=== PATIENT | female | born 1955 | race Caucasian/White ===

== ENCOUNTER 2017-02-11 12:27 | Inpatient (IN) | payer BC ==
[~2017-02-11] VITALS: Ht 172.7 cm; Wt 65.8 kg
[2017-02-11] MEDS ORDERED: SODIUM CHLORIDE 0.9% 1000ML 1,000 ML IV STA ×2 (12:47)
[2017-02-11] MEDS ORDERED: ONDANSETRON INJ 2 MG/ML 2 ML VIAL IV STA (12:47)
--- NOTE | 2017-02-11 12:50 | EMERGENCY ROOM VISIT NOTE ---
History Report prepared by Nahum: Jaime Crouch Under the Supervision of: Swanpa LittlejohnO. First contact with patient: 12:40 Chief Complaint: ABDOMINAL PAIN Stated Complaint: SHARP STOMACH PAIN History of Present Illness The patient is a 61 year old female who presents to the Emergency Room with complaints of sudden abdominal pain that started this morning. She describes the pain as severe, and mostly in the middle of her abdomen. The pain waxes and wanes. She states that she had episodes of vomiting following the onset of pain. She notes that years ago, she had gallbladder symptoms, so she had a cholecystectomy, but the symptoms kept coming. She then had an endoscopy and colonoscopy, and it was revealed that the patient had Crohn's. The patient also had appendicitis, and 2 years ago, a small Meckel diverticulum was found. Today is the first time that she has had similar symptoms to her gallbladder symptoms since then. She denies any chest pain, shortness of breath, fevers, chills, urinary symptoms, rectal bleeding, or leg swelling or leg pain. The patient had a hysterectomy due to abnormal cells. There was no definite cancer. She occasionally drinks alcohol but does not use tobacco products. She takes no daily medications. Source of History: patient Onset: This morning Position: abdomen Symptom Intensity: severe Timing: waxes/wanes, other (sudden) Associated Symptoms: + vomiting, No SOB, No chest pain, No chills, No fevers , No urinary symptoms Note: Associated symptoms: Denies rectal bleeding, leg swelling or leg pain. Review of Systems See HPI for pertinent positives & negatives. A total of 10 systems reviewed and were otherwise negative. Past Medical & Surgical Medical Problems: (1) Crohns disease (2) Meckel diverticulum (3) No chronic problems Surgical Problems: (1) H/O: hysterectomy (2) History of appendectomy (3) History of appendectomy (4) History of cholecystectomy (5) Hx of cholecystectomy (6) Hx of total knee arthroplasty Family History Cancer Diabetes mellitus FH: kidney disease Gallbladder disease Social History Smoking Status: Never Smoker Smokeless Tobacco Use: No Alcohol Use: occasionally Marital Status: Housing Status: lives with family Occupation Status: employed Current/Historical Medications Scheduled Cetirizine Hcl (Zyrtec Allergy), 10 MG PO DAILY Cholecalciferol (Vitamin D3), 1 TAB PO DAILY Fish Oil ([place]-3), 1 CAP PO DAILY Ibuprofen (Advil), 200-600 MG PO Q4H Multivitamin (Multivitamin), 1 TAB PO DAILY Allergies Coded Allergies: No Known Allergies (Unverified , 02/11/17) Physical Exam Vital Signs Date Time Temp Pulse Resp B/P Pulse Ox O2 Delivery O2 Flow Rate FiO2 02/11/17 17:09 90 02/11/17 15:50 77 15 117/78 97 Room Air 02/11/17 14:13 84 16 135/85 98 02/11/17 13:05 75 02/11/17 12:31 36.4 75 18 131/92 100 Room Air Physical Exam GENERAL: Patient is awake, alert, very anxious and uncomfortable appearing. EYES: The conjunctivae are clear. The pupils are round and reactive. EARS, NOSE, MOUTH AND THROAT: The nose is without any evidence of any deformity. Mucous membranes are moist tongue is midline NECK: The neck is nontender and supple. RESPIRATORY: Normal respiratory effort is noted there is no evidence of wheezing rhonchi or rales CARDIOVASCULAR: Regular rate and rhythm noted there no murmurs rubs or gallops normal S1 normal S2 GASTROINTESTINAL: The abdomen is soft with significant tenderness and guarding in both lower quadrants. BACK: No midline tenderness or or step-off noted range of motion in flexion extension as well as rotation no signs of muscle spasm noted MUSCULOSKELETAL/EXTREMITIES: There is no evidence of gross deformity full range of motion is noted in the hips and shoulders SKIN: There is no obvious evidence of any rash. There are no petechiae, pallor or cyanosis noted. NEUROLOGIC: Patient is awake alert and oriented x3. Medical Decision & Procedures ER Provider Diagnostic Interpretation: CT results as stated below per my review and radiologist interpretation. CT OF THE ABDOMEN AND PELVIS WITH CONTRAST CLINICAL HISTORY: Lower abdominal pain. COMPARISON STUDY: None. TECHNIQUE: Following IV administration of 92 mL of Optiray-320, axial images of the abdomen and pelvis were obtained from the lung bases to the proximal femurs. Images were reviewed in the axial, sagittal, and coronal planes. IV contrast was administered without complication. Oral contrast was administered. CT DOSE: 490.70 mGycm FINDINGS: The liver, spleen, adrenal glands and pancreas are unremarkable with the exception of calcified granulomas within the spleen. Bilateral renal lesions measure just above water attenuation. These likely reflect cysts. There is no hydronephrosis. There is no significant biliary ductal dilatation status post cholecystectomy. There is no pneumatosis, free air or portal venous gas. A small bowel anastomosis likely within the ileum is noted. There is a small amount of abdominal and pelvic ascites. There is mesenteric infiltration and hyperemia associated with multiple small bowel loops within the pelvis. Several minimally dilated fluid-filled small bowel loops are noted. A definite transition point is not identified. There is no lymphadenopathy. The uterus is surgically absent. IMPRESSION: Several minimally dilated, fluid-filled small bowel loops with associated mesenteric infiltration and a small amount of ascites. Definite transition point not identified. Differential considerations include a small bowel obstruction or enteritis. A closed loop small bowel obstruction would be difficult to exclude but the findings are not strongly suggestive of a closed loop. Close clinical monitoring is recommended. Discussed with Dr. Lundberg at time of dictation. Electronically signed by: Thierno Mccollum M.D. 02/11/2017 4:14 PM Dictated Date/Time: 02/11/2017 3:43 PM Laboratory Results Test 02/11/17 12:45 02/11/17 15:08 Immature Granulocyte % (Auto) 0.2 % White Blood Count 12.22 K/uL (4.8-10.8) Red Blood Count 5.20 M/uL (4.2-5.4) Hemoglobin 15.7 g/dL (12.0-16.0) Hematocrit 46.9 % (37-47) Mean Corpuscular Volume 90.2 fL (80-100) Mean Corpuscular Hemoglobin 30.2 pg (25-34) Mean Corpuscular Hemoglobin Concent 33.5 g/dl (32-36) Platelet Count 218 K/uL (130-400) Mean Platelet Volume 9.8 fL (7.4-10.4) Neutrophils (%) (Auto) 89.3 % Lymphocytes (%) (Auto) 6.5 % Monocytes (%) (Auto) 3.7 % Eosinophils (%) (Auto) 0.2 % Basophils (%) (Auto) 0.1 % Neutrophils # (Auto) 10.92 K/uL (1.4-6.5) Lymphocytes # (Auto) 0.79 K/uL (1.2-3.4) Monocytes # (Auto) 0.45 K/uL (0.11-0.59) Eosinophils # (Auto) 0.03 K/uL (0-0.5) Basophils # (Auto) 0.01 K/uL (0-0.2) Immature Granulocyte # (Auto) 0.02 K/uL (0.00-0.02) Total Bilirubin 0.7 mg/dl (0.2-1) Direct Bilirubin 0.1 mg/dl (0-0.2) Aspartate Amino Transf (AST/SGOT) 23 U/L (15-37) Alanine Aminotransferase (ALT/SGPT) 27 U/L (12-78) Alkaline Phosphatase 88 U/L (45-117) Total Protein 8.0 gm/dl (6.4-8.2) Albumin 4.3 gm/dl (3.4-5.0) Lipase 148 U/L (73-393) Urine Color YELLOW Urine Appearance TURBID (CLEAR) Urine pH >= 9.0 (4.5-7.5) Urine Specific [place] 1.013 (1.000-1.030) Urine Protein NEG (NEG) Urine Glucose (UA) NEG (NEG) Urine Ketones TRACE (NEG) Urine Occult Blood NEG (NEG) Urine Nitrite NEG (NEG) Urine Bilirubin NEG (NEG) Urine Urobilinogen NEG (NEG) Urine Leukocyte Esterase NEG (NEG) Urine WBC (Auto) 1-5 /hpf (0-5) Urine RBC (Auto) 0-4 /hpf (0-4) Urine Hyaline Casts (Auto) 1-5 /lpf (0-5) Urine Epithelial Cells (Auto) 20-30 /lpf (0-5) Urine Bacteria (Auto) NEG (NEG) Laboratory results per my review. Medications Administered Medications (Trade) Dose Ordered Sig/Mary Route Start Time Stop Time Status Last Admin Dose Admin Sodium Chloride 1,000 ml @ 999 mls/hr Q1H1M STAT IV 02/11/17 12:47 02/11/17 13:47 DC 02/11/17 12:59 999 MLS/HR Sodium Chloride (Nss 1000ml) 1,000 ml @ 250 mls/hr Q4H STAT IV 02/11/17 12:47 02/11/17 16:46 DC 02/11/17 12:47 250 MLS/HR Morphine Sulfate (MoRPHine SULFATE INJ) 4 mg Q15M PRN IV 02/11/17 13:00 4/26/17 18:10 DC 02/11/17 13:16 4 MG Ondansetron HCl (Zofran Inj) 4 mg NOW STAT IV 02/11/17 12:47 02/11/17 12:48 DC 02/11/17 12:58 4 MG Hydromorphone HCl (Dilaudid Inj) 1 mg NOW STAT IV 02/11/17 13:51 02/11/17 13:52 DC 02/11/17 14:14 1 MG ED Course 1240: The patient was evaluated in room A11B. A complete history and physical examination were performed. 1247: Ordered Zofran Inj 4 mg IV, NSS 1000 ml @ 250 mls/hr IV, NSS 1000 ml @ 999 mls/hr IV. 1300: Ordered Morphine Sulfate Inj 4 mg IV PRN. 1351: Ordered Dilaudid Inj 1 mg IV. 1431: I reevaluated the patient and she is resting comfortably. 1622: I reevaluated the patient and she is resting comfortably. The patient verbally expressed understanding and agreement with the treatment plan. The patient will be evaluated for further treatment. 1650: I discussed the patient with Melissa Black. She will evaluate the patient for further treatment. Medical Decision Prior records/ancillary studies reviewed. Triage Nursing notes reviewed. The patient's history was concerning for abdominal pain. Differential diagnosis: Etiologies such as appendicitis, diverticulitis, PUD, biliary pathology, UTI, pancreatitis, obstruction, mesenteric ischemia, aortic pathology, infections, inflammatory bowel disease, renal colic, as well as others were entertained. The patient is a 61-year-old female who presented to the emergency department for an evaluation of lower abdominal pain nausea and vomiting. The patient states that she's had similar symptoms in the past. She had this pain for quite some time and 2 years ago was diagnosed with appendicitis but was also found have a Meckel's diverticulum. This seemed to [place] her symptoms and she states that she's not had this pain for 2 years until recently. The patient's exam appeared to be consistent with very severe pain in the lower abdomen. Her CT appear to be consistent with either small bowel obstruction or some type of colitis but the radiologist was very concerned about the findings and called me to discuss her presentation. For this reason I discussed her case with the on- call [facility] hospitalist group. They've agreed to evaluate the patient in the emergency department for further management and disposition. I discussed the patient's laboratory and radiographic studies with her. She was treated with IV fluids IV pain medicine and IV antiemetics. On subsequent reevaluation she was feeling much better. Consults Time Called: 1640 Consulting Physician: Melissa Black Returned Call: 1650 I discussed the patient with Melissa Black. She will evaluate the patient for further treatment. Impression Primary Impression: Small bowel obstruction Additional Impressions: Nausea & vomiting Lower abdominal pain Scribe Attestation The scribe's documentation has been prepared under my direction and personally reviewed by me in its entirety. I confirm that the note above accurately reflects all work, treatment, procedures, and medical decision making performed by me. Departure Information Dispostion Being Evaluated By Hospitalist Referrals No Doctor, Assigned (PCP) Patient Instructions My [facility] Problem Qualifiers Additional Impressions: Nausea & vomiting Vomiting type: unspecified Vomiting Intractability: non-intractable Qualified Codes: R11.2 - Nausea with vomiting, unspecified
[2017-02-11] MEDS: MoRPHine SULFATE 4 MG/ML 1 ML CARP\\VIAL IV PRN ×2 (12:58→13:16)
[2017-02-11 12:59] LABS: BASO % 0.1 %; BASO ABS # 0.01 K/uL (0-0.2); COMPLETE YES; EOS % 0.2 %; HEMATOCRIT 46.9 % (37-47); IG% 0.2 %; LYMPH % 6.5 %; LYMPH ABS # 0.79 K/uL (1.2-3.4); MEAN CELL VOLUME 90.2 fL (80-100); MEAN CORPUSCULAR HEMOGLOBIN 30.2 pg (25-34); MEAN CORPUSCULAR HGB CONC 33.5 g/dl (32-36); MEAN PLATELET VOLUME 9.8 fL (7.4-10.4); MONO % 3.7 %; NEUT % 89.3 %; PLATELET COUNT 218 K/uL (130-400); WHITE BLOOD COUNT 12.22 K/uL (4.8-10.8)
[2017-02-11 13:16] LABS: BUN/CREATININE RATIO 10.1 (10-20); CALCIUM 9.5 mg/dl (8.5-10.1); POTASSIUM 3.5 mmol/L (3.5-5.1)
[2017-02-11] MEDS ORDERED: HYDROmorphone INJ 1 MG/ML SYR IV STA (13:51)
[2017-02-11] MEDS ORDERED: IBUP-1050 PO (13:56)
[2017-02-11] MEDS ORDERED: MULT-506 PO (13:56)
[2017-02-11] MEDS ORDERED: OMEG10007 PO (13:56)
[2017-02-11] MEDS ORDERED: CHOL1000 PO (13:56)
[2017-02-11] MEDS ORDERED: CETI10CA PO (13:56)
[2017-02-11] MEDS ORDERED: OPTIRAY 320 IV PRN (15:15)
[2017-02-11 15:24] LABS: URINE APPEARANCE TURBID (CLEAR); URINE BILIRUBIN NEG (NEG); URINE COLOR YELLOW; URINE EPITHELIAL CELL AUTO 20-30 /lpf (0-5); URINE NITRITE NEG (NEG); URINE PH >= 9.0 (4.5-7.5); URINE SPECIFIC GRAVITY 1.013 (1.000-1.030); UROBILINOGEN NEG (NEG)
[2017-02-11 15:25] LABS: MANUAL MICROSCOPIC REQUIRED? NO; REVIEW REQ? NO
--- NOTE | 2017-02-11 16:16 | DIAGNOSTIC IMAGING REPORT ---
CT OF THE ABDOMEN AND PELVIS WITH CONTRAST CLINICAL HISTORY: Lower abdominal pain. COMPARISON STUDY: None. TECHNIQUE: Following IV administration of 92 mL of Optiray-320, axial images of the abdomen and pelvis were obtained from the lung bases to the proximal femurs. Images were reviewed in the axial, sagittal, and coronal planes. IV contrast was administered without complication. Oral contrast was administered. CT DOSE: 490.70 mGycm FINDINGS: The liver, spleen, adrenal glands and pancreas are unremarkable with the exception of calcified granulomas within the spleen. Bilateral renal lesions measure just above water attenuation. These likely reflect cysts. There is no hydronephrosis. There is no significant biliary ductal dilatation status post cholecystectomy. There is no pneumatosis, free air or portal venous gas. A small bowel anastomosis likely within the ileum is noted. There is a small amount of abdominal and pelvic ascites. There is mesenteric infiltration and hyperemia associated with multiple small bowel loops within the pelvis. Several minimally dilated fluid-filled small bowel loops are noted. A definite transition point is not identified. There is no lymphadenopathy. The uterus is surgically absent. IMPRESSION: Several minimally dilated, fluid-filled small bowel loops with associated mesenteric infiltration and a small amount of ascites. Definite transition point not identified. Differential considerations include a small bowel obstruction or enteritis. A closed loop small bowel obstruction would be difficult to exclude but the findings are not strongly suggestive of a closed loop. Close clinical monitoring is recommended. Discussed with Dr. Lundberg at time of dictation. Electronically signed by: Thierno Mccollum M.D. 02/11/2017 4:14 PM Dictated Date/Time: 02/11/2017 3:43 PM
[2017-02-11] MEDS ORDERED: MoRPHine SULFATE 2 MG/ML CARP IV PRN (17:30)
[2017-02-11] MEDS ORDERED: ACETAMINOPHEN 325 MG TAB PO PRN (17:30)
--- NOTE | 2017-02-11 17:41 | History and Physical ---
History & Physical Date & Time of Service: Feb 11, 2017 at 17:23 Chief Complaint: Sharp Stomach Pain Primary Care Physician: No Doctor, Assigned History of Present Illness Source: patient, family Patient seen and examined. 61 year old female with no chronic medical history presents to the ED complaining of abdominal pain prior to arrival. Patient reports she acutely developed lower abdominal pain this AM that she described as sharp and comes in waves. She rates the pain as a 9/10 at it's worst. She reports 4 episodes of vomiting and states she had a small bowel movement. She denies fevers, chills, URI symptoms, chest pain, SOB, nausea, dysuria, calf pain and edema. She reports that she has been told she has a meckle's diverticulum. She has a history of cholecystectomy, appendectomy and hysterectomy. In the ED VS are stable, WBC count is 12K otherwise lab work is unremarkable. CT a/p could not r/o bowel obstruction. Patient received IVFs, antiemetics and pain medications. She is resting comfortably. She will be observed for further workup and treatment. Past Medical/Surgical History Medical Problems: (1) Meckel diverticulum Status: Resolved (2) No chronic problems Status: Chronic Surgical Problems: (1) H/O: hysterectomy Status: Chronic (2) History of appendectomy Status: Chronic (3) History of cholecystectomy Status: Chronic (4) Hx of total knee arthroplasty Status: Chronic Family History Cancer Diabetes mellitus FH: kidney disease Gallbladder disease Social History Smoking Status: Never Smoker Smokeless Tobacco Use: No Alcohol Use: occasionally Marital Status: Housing status: lives with family Occupational Status: employed Allergies Coded Allergies: No Known Allergies (Unverified , 02/11/17) Home Medications Scheduled Cetirizine Hcl (Zyrtec Allergy), 10 MG PO DAILY Cholecalciferol (Vitamin D3), 1 TAB PO DAILY Fish Oil ([place]-3), 1 CAP PO DAILY Ibuprofen (Advil), 200-600 MG PO Q4H Multivitamin (Multivitamin), 1 TAB PO DAILY Review of Systems Constitutional: No chills, No fever Eyes: No worsening of vision ENT: No nasal symptoms Respiratory: No cough, No shortness of breath Cardiovascular: No chest pain, No edema Abdomen: + pain, + vomiting, No GI bleeding, No constipation, No diarrhea, No nausea Musculoskeletal: No calf pain, No swelling Genitourinary - Female: No dysuria Neurologic: No numbness/tingling, No vertigo Psychiatric: No depression symptoms Endocrine: No fatigue Hematologic / Lymphatic: No abnormal bleeding/bruising, No clotting problems Integumentary: No itch, No rash Allergic / Immunologic: No environmental allergies Physical Exam Vital Signs Date Time Temp Pulse Resp B/P Pulse Ox O2 Delivery O2 Flow Rate FiO2 02/11/17 17:09 90 02/11/17 15:50 77 15 117/78 97 Room Air 02/11/17 14:13 84 16 135/85 98 02/11/17 13:05 75 02/11/17 12:31 36.4 75 18 131/92 100 Room Air General Appearance: + pertinent finding (Pleasant WD/WN 61 year old female lying in bed in NAD with family at bedside ) Head: normocephalic, atraumatic Eyes: PERRL, EOMI, sclerae normal ENT: hearing grossly normal, pharynx normal Neck: supple, no JVD Respiratory/Chest: chest non-tender, lungs clear, normal breath sounds, no respiratory distress, no accessory muscle use Cardiovascular: regular rate, rhythm, no edema, no gallop, no JVD, no murmur, normal peripheral pulses Abdomen/GI: normal bowel sounds, soft, no organomegaly, + tenderness (mild lower abdomen ) Back: normal inspection, no muscle spasm Extremities/Musculoskelatal: no calf tenderness, normal capillary refill, no pedal edema Neurologic/Psych: no motor/sensory deficits, alert, oriented x 3 Skin: normal color, warm/dry, no rash Lymphatic: no adenopathy Diagnostics Laboratory Results Results Past 24 Hours Test 02/11/17 12:45 02/11/17 15:08 Range/Units White Blood Count 12.22 4.8-10.8 K/uL Red Blood Count 5.20 4.2-5.4 M/uL Hemoglobin 15.7 12.0-16.0 g/dL Hematocrit 46.9 37-47 % Mean Corpuscular Volume 90.2 80-100 fL Mean Corpuscular Hemoglobin 30.2 25-34 pg Mean Corpuscular Hemoglobin Concent 33.5 32-36 g/dl Platelet Count 218 130-400 K/uL Mean Platelet Volume 9.8 7.4-10.4 fL Neutrophils (%) (Auto) 89.3 % Lymphocytes (%) (Auto) 6.5 % Monocytes (%) (Auto) 3.7 % Eosinophils (%) (Auto) 0.2 % Basophils (%) (Auto) 0.1 % Neutrophils # (Auto) 10.92 1.4-6.5 K/uL Lymphocytes # (Auto) 0.79 1.2-3.4 K/uL Monocytes # (Auto) 0.45 0.11-0.59 K/uL Eosinophils # (Auto) 0.03 0-0.5 K/uL Basophils # (Auto) 0.01 0-0.2 K/uL RDW Standard Deviation 43.7 36.4-46.3 fL RDW Coefficient of Variation 13.4 11.5-14.5 % Immature Granulocyte % (Auto) 0.2 % Immature Granulocyte # (Auto) 0.02 0.00-0.02 K/uL Sodium Level 140 136-145 mmol/L Potassium Level 3.5 3.5-5.1 mmol/L Chloride Level 105 98-107 mmol/L Carbon Dioxide Level 30 21-32 mmol/L Anion Gap 5.0 3-11 mmol/L Blood Urea Nitrogen 10 7-18 mg/dl Creatinine 1.00 0.60-1.20 mg/dl Est Creatinine Clear Calc Drug Dose 61.1 ml/min Estimated GFR () 71.4 Estimated GFR (Non- 61.6 BUN/Creatinine Ratio 10.1 10-20 Random Glucose 126 70-99 mg/dl Calcium Level 9.5 8.5-10.1 mg/dl Total Bilirubin 0.7 0.2-1 mg/dl Direct Bilirubin 0.1 0-0.2 mg/dl Aspartate Amino Transf (AST/SGOT) 23 15-37 U/L Alanine Aminotransferase (ALT/SGPT) 27 12-78 U/L Alkaline Phosphatase 88 45-117 U/L Total Protein 8.0 6.4-8.2 gm/dl Albumin 4.3 3.4-5.0 gm/dl Lipase 148 73-393 U/L Urine Color YELLOW Urine Appearance TURBID CLEAR Urine pH >= 9.0 4.5-7.5 Urine Specific [place] 1.013 1.000-1.030 Urine Protein NEG NEG Urine Glucose (UA) NEG NEG Urine Ketones TRACE NEG Urine Occult Blood NEG NEG Urine Nitrite NEG NEG Urine Bilirubin NEG NEG Urine Urobilinogen NEG NEG Urine Leukocyte Esterase NEG NEG Urine WBC (Auto) 1-5 0-5 /hpf Urine RBC (Auto) 0-4 0-4 /hpf Urine Hyaline Casts (Auto) 1-5 0-5 /lpf Urine Epithelial Cells (Auto) 20-30 0-5 /lpf Urine Bacteria (Auto) NEG NEG Diagnostic Radiology CT A/P Per radiologist read: IMPRESSION: Several minimally dilated, fluid-filled small bowel loops with associated mesenteric infiltration and a small amount of ascites. Definite transition point not identified. Differential considerations include a small bowel obstruction or enteritis. A closed loop small bowel obstruction would be difficult to exclude but the findings are not strongly suggestive of a closed loop. Close clinical monitoring is recommended. Discussed with Dr. Lundberg at time of dictation. Impression Assessment and Plan 61 year old female with PMHx of appendectomy, cholecystectomy, and hysterectomy , with known meckle's diverticulum presents to the ED with abdominal pain ABDOMINAL PAIN -Observation in med/surg -CT scan without definitive bowel obstruction (see above) -Did have small bowel movement this AM, good bowel sounds -will keep npo -no indication for NG tube at this time, will consider if patient has vomiting -Pain control with morphine prn - prescription drug monitoring program reviewed -Zofran prn -IVF hydration -CBC, PRP, in AM -monitor clinically, if patient does not improve consider KUB in AM, defer to daytime attending LEUKOCYTOSIS -12K, no fevers -Likely reactive, repeat in AM -no indication for Abx DVT PROPHYLAXIS: SCDs, ambulation CODE STATUS: FULL CODE DISPO:observation pending further workup Patient seen in collaboration with Dr. Jillian Guzman VTE Prophylaxis VTE Risk Assessment Done? Y/N: Yes Risk Level: Low
[2017-02-11] MEDS ORDERED: IV FLUIDS COMPLETED PRN (18:00)
--- NOTE | 2017-02-11 18:09 | Progress Note ---
Progress Note Date of Service Feb 11, 2017. Progress Note Patient was seen and evaluated with HARRY Carlson. Patient came in with c/o sudden onset abdominal pain, nausea, v omiting since today AM. She was at her baseline till today AM. Abdominal pain, lower constant varying intensities, now much better in ED after medication. Never had these symptoms before. No fever, chills, diarrhea, weight loss, anorexia. Does have irregular Bowel movements. Had a BM, small today AM EXAM: Gen: AAOX3, no distress Lungs: Clear, No wheezing, rhonchi, rales Heart- S1, S2 normal, no murmur Abdomen- Soft, mild tenderness, right lower and middle quadrant more than upper , BS +, no rigidity Ext- no edema Labs: WBC 12k; CT scan abd/pelvis reviewed- possible SBO A/P: POSSIBLE SBO: Sudden onset abdominal pain, nausea, vomiting since today AM, had a small BM today Risk factors: Multiple abdominal surgeries- Hysterectomy, Appendectomy, Cholecystectomy,. Possible adhesions -NPO with sips, chips, IV Fluids, Colace BID added due to irregular bm habits -IV toradol prn, avoid narcotics as pain is well controlled and avoid ileus -Advance diet as tolerated -CT scan as above. DVT PROPHYLAXIS SCDS, low risk, encourage ambulation DISPOSITION Observation med surg
[2017-02-11 19:30] VITALS: BP 114/74; PULSE 78; TEMP 36.8; O2SAT 100
[2017-02-11 19:36] VITALS: BP 114/74; PULSE 78; TEMP 36.8; O2SAT 100; Ht 172.7 cm; Wt 65.8 kg
[2017-02-11] MEDS: NSS + 20MEQ KCL 1000ML 1,000 ML IV SCH (20:16)
[2017-02-11] MEDS: DOCUSATE SODIUM 100 MG CAP PO SCH (21:04)
[2017-02-11] MEDS: KETOROLAC TROMETHAMINE 30 MG/ML VIAL IV PRN (21:09)
[2017-02-11 23:02] VITALS: BP 109/66; PULSE 71; TEMP 36.8; O2SAT 94
[2017-02-12] MEDS ORDERED: MoRPHine SULFATE 2 MG/ML CARP IV ONE (00:45)
[2017-02-12] MEDS: KETOROLAC TROMETHAMINE 30 MG/ML VIAL IV PRN ×3 (03:10→15:38)
[2017-02-12] MEDS: NSS + 20MEQ KCL 1000ML 1,000 ML IV SCH ×2 (05:43→15:39)
[2017-02-12 06:56] LABS: HEMATOCRIT 44.8 % (37-47); MEAN CELL VOLUME 90.3 fL (80-100); MEAN CORPUSCULAR HEMOGLOBIN 29.6 pg (25-34); MEAN CORPUSCULAR HGB CONC 32.8 g/dl (32-36); MEAN PLATELET VOLUME 9.7 fL (7.4-10.4); PLATELET COUNT 211 K/uL (130-400); RED BLOOD COUNT 4.96 M/uL (4.2-5.4); WHITE BLOOD COUNT 11.28 K/uL (4.8-10.8)
[2017-02-12 07:20] VITALS: BP 127/89; PULSE 73; TEMP 36.9; O2SAT 97
[2017-02-12 07:37] LABS: BUN/CREATININE RATIO 9.4 (10-20); CALCIUM 9.4 mg/dl (8.5-10.1); POTASSIUM 4.1 mmol/L (3.5-5.1)
[2017-02-12] MEDS: DOCUSATE SODIUM 100 MG CAP PO SCH ×2 (08:29→21:00)
[2017-02-12] MEDS ORDERED: NURSING VERBAL MED ORDER ONE (10:45)
[2017-02-12] MEDS: ACETAMINOPHEN IV 650 MG in EMPTY BAG 0 ML IV PRN ×3 (11:31→23:23)
[2017-02-12 15:08] VITALS: BP 133/88; PULSE 80; TEMP 36.9; O2SAT 97
--- NOTE | 2017-02-12 17:23 | Progress Note ---
Subjective Date of Service: Feb 12, 2017. Subjective Pt evaluation today including: conversation w/ patient, conversation w/ family , physical exam, chart review, lab review, review of studies, review of inpatient medication list Saw/examined the patient in room 379 She continued to have abdominal pain with tenderness and multiple vomiting episodes No bowel movement since February 10 Improving pain with medications Problem List Medical Problems: (1) Lower abdominal pain Status: Acute (2) Nausea & vomiting Status: Acute (3) Small bowel obstruction Status: Acute Review of Systems Constitutional: No chills, No fever Respiratory: No cough, No shortness of breath, No sputum Cardiac: No chest pain Abdomen: + constipation, + nausea, + pain, + vomiting, No diarrhea Medications Current Inpatient Medications Medications (Trade) Dose Ordered Sig/Mary Route Start Time Stop Time Status Last Admin Dose Admin Ioversol (Optiray 320) 100 ml UD PRN IV 02/11/17 15:15 02/15/17 15:14 Ondansetron HCl 4 mg 4 mg Q6H PRN IV 02/11/17 17:30 03/13/17 17:29 Potassium Chloride/Sodium Chloride (Nss + 20meq KCl 1000ml) 1,000 ml @ 100 mls/hr Q10H IV 02/11/17 20:00 03/13/17 17:29 02/12/17 15:39 100 MLS/HR Miscellaneous (Iv Fluids Completed) 1 ea PRN PRN N/A 02/11/17 18:00 02/11/18 17:59 Ketorolac Tromethamine (Toradol Inj) 30 mg Q6H PRN IV 02/11/17 18:15 02/16/17 18:14 02/12/17 15:38 30 MG Docusate Sodium 100 mg 100 mg BID PO 02/11/17 21:00 03/13/17 20:59 02/11/17 21:04 100 MG Acetaminophen/ Empty Bag (Ofirmev Iv/ Empty Iv Bag 100ml) 65 ml @ 260 mls/hr Q4H PRN IV 02/12/17 10:45 03/14/17 10:44 02/12/17 11:31 260 MLS/HR Objective Vital Signs Date Time Temp Pulse Resp B/P Pulse Ox O2 Delivery O2 Flow Rate FiO2 02/12/17 15:08 36.9 80 16 133/88 97 Room Air 02/12/17 07:30 Room Air 02/12/17 07:20 36.9 73 16 127/89 97 Room Air 02/12/17 00:05 Room Air 02/11/17 23:02 36.8 71 17 109/66 94 Room Air 02/11/17 19:36 36.8 78 18 114/74 100 Room Air 02/11/17 19:30 36.8 78 18 114/74 100 Room Air 02/11/17 19:30 100 Room Air 02/11/17 19:01 75 18 104/75 95 Room Air 02/11/17 17:44 80 21 108/77 96 02/11/17 17:09 90 Physical Exam General Appearance: + moderate distress (secondary to pain and nausea/vomiting) , + thin Respiratory/Chest: chest non-tender, lungs clear, normal breath sounds, no respiratory distress, no accessory muscle use Cardiovascular: regular rate, rhythm, no edema, no murmur Abdomen: + abnormal bowel sounds (decreased bowel sounds), + guarding, + tenderness Laboratory Results Last 24 Hours Test 02/12/17 06:31 White Blood Count 11.28 K/uL Red Blood Count 4.96 M/uL Hemoglobin 14.7 g/dL Hematocrit 44.8 % Mean Corpuscular Volume 90.3 fL Mean Corpuscular Hemoglobin 29.6 pg Mean Corpuscular Hemoglobin Concent 32.8 g/dl RDW Standard Deviation 44.8 fL RDW Coefficient of Variation 13.5 % Platelet Count 211 K/uL Mean Platelet Volume 9.7 fL Sodium Level 140 mmol/L Potassium Level 4.1 mmol/L Chloride Level 104 mmol/L Carbon Dioxide Level 32 mmol/L Anion Gap 4.0 mmol/L Blood Urea Nitrogen 9 mg/dl Creatinine 1.00 mg/dl Est Creatinine Clear Calc Drug Dose 61.1 ml/min Estimated GFR () 71.4 Estimated GFR (Non- 61.6 BUN/Creatinine Ratio 9.4 Random Glucose 109 mg/dl Calcium Level 9.4 mg/dl Assessment and Plan This is a 61 year old female with a complicated surgical history including cholecystectomy with complications including a biloma, appendectomy, hysterectomy, Meckel's diverticulum presents with nausea/vomiting and abdominal pain and subsequently found to have small bowel obstruction Small Bowel Obstruction Abdominal CT = possible small bowel obstruction NPO + IVFs (sips and chips) patient continued to have significant tenderness and vomiting episodes this AM ( 02/12) IV tylenol + IV toradol for pain Zofran PRN for nausea NGT inserted with intermittent suction - 400cc removed immediately; and continues to drain if pain persist, will consult general surgery DVT ppx SCDs FULL CODE
[2017-02-12 23:08] VITALS: BP 133/83; PULSE 88; TEMP 37.3; O2SAT 97
[2017-02-13] MEDS: NSS + 20MEQ KCL 1000ML 1,000 ML IV SCH ×3 (01:32→21:15)
[2017-02-13] MEDS: DOCUSATE SODIUM 100 MG CAP PO SCH ×2 (07:06→21:15)
[2017-02-13 07:35] VITALS: BP 125/79; PULSE 81; TEMP 36.8; O2SAT 96
[2017-02-13 07:38] LABS: MEAN CELL VOLUME 90.7 fL (80-100); MEAN PLATELET VOLUME 9.7 fL (7.4-10.4); PLATELET COUNT 203 K/uL (130-400); RED BLOOD COUNT 5.07 M/uL (4.2-5.4)
[2017-02-13 08:03] LABS: CREATININE 0.88 mg/dl (0.60-1.20); POTASSIUM 3.9 mmol/L (3.5-5.1)
--- NOTE | 2017-02-13 08:20 | DIAGNOSTIC IMAGING REPORT ---
[facility] CLINICAL HISTORY: Follow-up possible small bowel obstruction. FINDINGS: 2 AP supine abdominal radiographs are correlated with abdominal CT dated 02/11/2017. An enteric tube projects over the stomach. Cholecystectomy clips are noted in the right upper quadrant. There is gaseous distention of the small bowel loops which appear distended and measure up to 4.5 cm in diameter. The appearance suggests small bowel obstruction. No evidence of intraperitoneal free air is seen on these supine views. Suture material and surgical clips are noted in the pelvis. There are pelvic phleboliths. There is no radiographic evidence of nephrolithiasis. A metallic foreign body is again noted in the pelvis. The skeletal structures are osteopenic. There is lumbosacral spondylosis. The bony pelvis appears intact. IMPRESSION: 1. An enteric tube projects over the stomach. 2. There is gaseous distention of the small bowel loops. The appearance suggests small bowel obstruction. Clinical correlation will be required. Electronically signed by: Dae Guzmán M.D. 02/13/2017 8:19 AM Dictated Date/Time: 02/13/2017 8:17 AM
[2017-02-13] MEDS: KETOROLAC TROMETHAMINE 30 MG/ML VIAL IV PRN ×2 (11:14→17:39)
--- NOTE | 2017-02-13 12:30 | Progress Note ---
Subjective Date of Service: Feb 13, 2017. Subjective Pt evaluation today including: conversation w/ patient, physical exam, lab review, review of studies, review of inpatient medication list Saw/examined the patient in room 379 Improving abdominal pain, feels like she has to move her bowels, but has not yet no passing gas as of yet NGT in place and draining well Problem List Medical Problems: (1) Lower abdominal pain Status: Acute (2) Nausea & vomiting Status: Acute (3) Small bowel obstruction Status: Acute Review of Systems Constitutional: No chills, No fever Respiratory: No shortness of breath Cardiac: No chest pain Abdomen: + nausea, + pain (improving), + vomiting (improving) Medications Current Inpatient Medications Medications (Trade) Dose Ordered Sig/Mary Route Start Time Stop Time Status Last Admin Dose Admin Ioversol (Optiray 320) 100 ml UD PRN IV 02/11/17 15:15 02/15/17 15:14 Ondansetron HCl 4 mg 4 mg Q6H PRN IV 02/11/17 17:30 03/13/17 17:29 Potassium Chloride/Sodium Chloride (Nss + 20meq KCl 1000ml) 1,000 ml @ 100 mls/hr Q10H IV 02/11/17 20:00 03/13/17 17:29 02/13/17 11:14 100 MLS/HR Miscellaneous (Iv Fluids Completed) 1 ea PRN PRN N/A 02/11/17 18:00 02/11/18 17:59 Ketorolac Tromethamine (Toradol Inj) 30 mg Q6H PRN IV 02/11/17 18:15 02/16/17 18:14 02/13/17 11:14 30 MG Docusate Sodium 100 mg 100 mg BID PO 02/11/17 21:00 03/13/17 20:59 02/11/17 21:04 100 MG Acetaminophen/ Empty Bag (Ofirmev Iv/ Empty Iv Bag 100ml) 65 ml @ 260 mls/hr Q4H PRN IV 02/12/17 10:45 03/14/17 10:44 02/12/17 23:23 260 MLS/HR Objective Vital Signs Date Time Temp Pulse Resp B/P Pulse Ox O2 Delivery O2 Flow Rate FiO2 02/13/17 07:35 36.8 81 18 125/79 96 Room Air 02/13/17 07:31 Room Air 02/12/17 23:31 Room Air 02/12/17 23:08 37.3 88 16 133/83 97 Room Air 02/12/17 15:50 Room Air 02/12/17 15:08 36.9 80 16 133/88 97 Room Air Physical Exam General Appearance: no apparent distress, + thin Respiratory/Chest: lungs clear, normal breath sounds, no respiratory distress, no accessory muscle use Cardiovascular: regular rate, rhythm, no edema, no murmur Abdomen: non tender (minimally tender), soft, + abnormal bowel sounds ( decreased bowel sounds) Laboratory Results Last 24 Hours Test 02/13/17 06:58 White Blood Count 7.40 K/uL Red Blood Count 5.07 M/uL Hemoglobin 15.2 g/dL Hematocrit 46.0 % Mean Corpuscular Volume 90.7 fL Mean Corpuscular Hemoglobin 30.0 pg Mean Corpuscular Hemoglobin Concent 33.0 g/dl RDW Standard Deviation 44.6 fL RDW Coefficient of Variation 13.6 % Platelet Count 203 K/uL Mean Platelet Volume 9.7 fL Sodium Level 144 mmol/L Potassium Level 3.9 mmol/L Chloride Level 105 mmol/L Carbon Dioxide Level 29 mmol/L Anion Gap 10.0 mmol/L Blood Urea Nitrogen 19 mg/dl Creatinine 0.88 mg/dl Est Creatinine Clear Calc Drug Dose 69.4 ml/min Estimated GFR () 83.4 Estimated GFR (Non- 71.9 BUN/Creatinine Ratio 21.0 Random Glucose 103 mg/dl Calcium Level 9.0 mg/dl Assessment and Plan This is a 61 year old female with a complicated surgical history including cholecystectomy with complications including a biloma, appendectomy, hysterectomy, Meckel's diverticulum presents with nausea/vomiting and abdominal pain and subsequently found to have small bowel obstruction Small Bowel Obstruction 02/13 KUB this AM = SBO no passing gas, no BM yet continue NGT, IVFs, NPO status 02/[address] = possible small bowel obstruction NPO + IVFs (sips and chips) patient continued to have significant tenderness and vomiting episodes this AM ( 02/12) IV tylenol + IV toradol for pain Zofran PRN for nausea NGT inserted with intermittent suction - 400cc removed immediately; and continues to drain if pain persist, will consult general surgery DVT ppx SCDs FULL CODE
[2017-02-13] MEDS: ACETAMINOPHEN IV 650 MG in EMPTY BAG 0 ML IV PRN (13:26)
[2017-02-13 14:55] VITALS: BP 128/78; PULSE 78; TEMP 37.1; O2SAT 99
[2017-02-13 23:19] VITALS: BP 137/90; PULSE 82; TEMP 37; O2SAT 98
[2017-02-13] MEDS: ONDANSETRON INJ 2 MG/ML 2 ML VIAL IV PRN (23:58)
[2017-02-14] MEDS: ACETAMINOPHEN IV 650 MG in EMPTY BAG 0 ML IV PRN (00:01)
[2017-02-14] MEDS: ONDANSETRON INJ 2 MG/ML 2 ML VIAL IV PRN ×2 (06:12→16:01)
[2017-02-14] MEDS: NSS + 20MEQ KCL 1000ML 1,000 ML IV SCH ×2 (06:12→15:58)
[2017-02-14 06:59] LABS: HEMATOCRIT 42.9 % (37-47); MEAN CELL VOLUME 91.3 fL (80-100); MEAN CORPUSCULAR HEMOGLOBIN 30.2 pg (25-34); MEAN CORPUSCULAR HGB CONC 33.1 g/dl (32-36); MEAN PLATELET VOLUME 9.5 fL (7.4-10.4); PLATELET COUNT 161 K/uL (130-400); WHITE BLOOD COUNT 6.14 K/uL (4.8-10.8)
[2017-02-14 07:31] LABS: BUN/CREATININE RATIO 31.4 (10-20); CALCIUM 9.1 mg/dl (8.5-10.1); CREATININE 0.8 mg/dl (0.60-1.20); POTASSIUM 3.7 mmol/L (3.5-5.1)
[2017-02-14 07:38] VITALS: BP 124/85; PULSE 92; TEMP 36.8; O2SAT 94
[2017-02-14 08:00] VITALS: O2SAT 94
[2017-02-14] MEDS: DOCUSATE SODIUM 100 MG CAP PO SCH ×2 (09:24→20:46)
[2017-02-14] MEDS ORDERED: PROMETHAZINE HCL INJ 12.5 MG in SODIUM CHLORIDE 0.9% 50ML 50 ML IV ONE ×2 (10:45→18:30)
--- NOTE | 2017-02-14 12:13 | Progress Note ---
Subjective Date of Service: Feb 14, 2017. Subjective Pt evaluation today including: conversation w/ patient, physical exam, lab review, review of studies, review of inpatient medication list Saw/examined the patient in room 379 She states that she had two bowel movements and is passing gas +nausea persists she is on clears, but due to nausea, just taking sips Problem List Medical Problems: (1) Lower abdominal pain Status: Acute (2) Nausea & vomiting Status: Acute (3) Small bowel obstruction Status: Acute Review of Systems Constitutional: No chills, No fever Respiratory: No shortness of breath Cardiac: No chest pain Abdomen: + nausea, No GI bleeding, No constipation, No diarrhea, No pain, No vomiting Heme: No abnormal bleeding/bruising Medications Current Inpatient Medications Medications (Trade) Dose Ordered Sig/Mary Route Start Time Stop Time Status Last Admin Dose Admin Ioversol (Optiray 320) 100 ml UD PRN IV 02/11/17 15:15 02/15/17 15:14 Ondansetron HCl 4 mg 4 mg Q6H PRN IV 02/11/17 17:30 03/13/17 17:29 02/14/17 06:12 4 MG Potassium Chloride/Sodium Chloride (Nss + 20meq KCl 1000ml) 1,000 ml @ 100 mls/hr Q10H IV 02/11/17 20:00 03/13/17 17:29 02/14/17 06:12 100 MLS/HR Miscellaneous (Iv Fluids Completed) 1 ea PRN PRN N/A 02/11/17 18:00 02/11/18 17:59 Ketorolac Tromethamine (Toradol Inj) 30 mg Q6H PRN IV 02/11/17 18:15 02/16/17 18:14 02/13/17 17:39 30 MG Docusate Sodium 100 mg 100 mg BID PO 02/11/17 21:00 03/13/17 20:59 02/14/17 09:24 100 MG Acetaminophen/ Empty Bag (Ofirmev Iv/ Empty Iv Bag 100ml) 65 ml @ 260 mls/hr Q4H PRN IV 02/12/17 10:45 03/14/17 10:44 02/14/17 00:01 260 MLS/HR Objective Vital Signs Date Time Temp Pulse Resp B/P Pulse Ox O2 Delivery O2 Flow Rate FiO2 02/14/17 08:00 94 Room Air 02/14/17 07:38 36.8 92 16 124/85 94 Room Air 02/13/17 23:55 Room Air 02/13/17 23:19 37.0 82 16 137/90 98 Room Air 02/13/17 16:00 Room Air 02/13/17 14:55 37.1 78 16 128/78 99 Room Air Physical Exam General Appearance: no apparent distress Respiratory/Chest: chest non-tender, lungs clear, normal breath sounds, no respiratory distress, no accessory muscle use Cardiovascular: regular rate, rhythm, no edema, no murmur Abdomen: non tender, soft, + abnormal bowel sounds, + distended, + pertinent finding (mild distention, though soft abdomen; non-tender to palpation, slightly decreased bowel sounds, though also imrpoving) Extremities: normal inspection, no pedal edema Laboratory Results Last 24 Hours Test 02/14/17 06:15 White Blood Count 6.14 K/uL Red Blood Count 4.70 M/uL Hemoglobin 14.2 g/dL Hematocrit 42.9 % Mean Corpuscular Volume 91.3 fL Mean Corpuscular Hemoglobin 30.2 pg Mean Corpuscular Hemoglobin Concent 33.1 g/dl RDW Standard Deviation 45.4 fL RDW Coefficient of Variation 13.5 % Platelet Count 161 K/uL Mean Platelet Volume 9.5 fL Sodium Level 143 mmol/L Potassium Level 3.7 mmol/L Chloride Level 105 mmol/L Carbon Dioxide Level 30 mmol/L Anion Gap 8.0 mmol/L Blood Urea Nitrogen 25 mg/dl Creatinine 0.80 mg/dl Est Creatinine Clear Calc Drug Dose 76.4 ml/min Estimated GFR () 93.5 Estimated GFR (Non- 80.7 BUN/Creatinine Ratio 31.4 Random Glucose 129 mg/dl Calcium Level 9.1 mg/dl Assessment and Plan This is a 61 year old female with a complicated surgical history including cholecystectomy with complications including a biloma, appendectomy, hysterectomy, Meckel's diverticulum presents with nausea/vomiting and abdominal pain and subsequently found to have small bowel obstruction Small Bowel Obstruction 02/14 NGT removed; patient was having a difficult time with it she has passed gas and had a bowel movement added Phenergan to see if that helps with nausea continue Zofran PRN IVFs continue sips of clears as tolerated 02/13 KUB this AM = SBO no passing gas, no BM yet continue NGT, IVFs, NPO status 02/[address] = possible small bowel obstruction NPO + IVFs (sips and chips) patient continued to have significant tenderness and vomiting episodes this AM ( 02/12) IV tylenol + IV toradol for pain Zofran PRN for nausea NGT inserted with intermittent suction - 400cc removed immediately; and continues to drain if pain persist, will consult general surgery DVT ppx SCDs FULL CODE
--- NOTE | 2017-02-14 13:58 | DIAGNOSTIC IMAGING REPORT ---
[facility] HISTORY: Follow-up small bowel obstruction. COMPARISON: [facility]UB 02/13/2017. FINDINGS: Multiple dilated gas-filled loops of small bowel seen within the abdomen. These measure up to 4.2 cm in diameter. This is similar to the prior study. Cholecystectomy. The nasogastric tube is been removed. Punctate metallic density overlying the left sacrum remains unchanged. There is suture material within the right groin. No renal calculi. No ureteral calculi. No pneumoperitoneum or pneumatosis. IMPRESSION: No change in the small bowel obstruction. The nasogastric tube has been removed. Electronically signed by: Jake Welch M.D. 02/14/2017 1:56 PM Dictated Date/Time: 02/14/2017 1:54 PM
[2017-02-14 15:03] VITALS: BP 143/90; PULSE 85; TEMP 37.3; O2SAT 98
[2017-02-14] MEDS ORDERED: PROMETHAZINE HCL INJ 12.5 MG in SODIUM CHLORIDE 0.9% 50ML 50 ML IV PRN (18:30)
[2017-02-14 23:33] VITALS: BP 137/86; PULSE 85; TEMP 36.9; O2SAT 95
[2017-02-15] MEDS: NSS + 20MEQ KCL 1000ML 1,000 ML IV SCH ×3 (01:51→19:09)
[2017-02-15] MEDS: ONDANSETRON INJ 2 MG/ML 2 ML VIAL IV PRN ×3 (01:54→13:46)
[2017-02-15 06:38] LABS: HEMATOCRIT 40.4 % (37-47); MEAN CELL VOLUME 91.8 fL (80-100); MEAN CORPUSCULAR HEMOGLOBIN 30.2 pg (25-34); MEAN CORPUSCULAR HGB CONC 32.9 g/dl (32-36); MEAN PLATELET VOLUME 9.6 fL (7.4-10.4); PLATELET COUNT 197 K/uL (130-400); WHITE BLOOD COUNT 5.17 K/uL (4.8-10.8)
[2017-02-15 07:14] LABS: BUN/CREATININE RATIO 28.9 (10-20); CALCIUM 8.9 mg/dl (8.5-10.1); CREATININE 0.81 mg/dl (0.60-1.20); POTASSIUM 3.7 mmol/L (3.5-5.1)
[2017-02-15 07:15] VITALS: BP 125/78; PULSE 70; TEMP 36.9; O2SAT 94; O2SAT 98
[2017-02-15] MEDS: DOCUSATE SODIUM 100 MG CAP PO SCH ×2 (09:02→21:08)
--- NOTE | 2017-02-15 10:08 | DIAGNOSTIC IMAGING REPORT ---
PA CHEST RADIOGRAPH AND UPRIGHT AND SUPINE AP RADIOGRAPHS OF THE ABDOMEN CLINICAL HISTORY: Follow up bowel obstruction. COMPARISON STUDY: CT of the abdomen and pelvis February 11, 2017 and KUB February 14, 2017. FINDINGS: Lung volumes are normal. There is no pneumothorax or pleural effusion. Nipple shadows project over the lower chest. There is no evidence of pulmonary edema. Cardiomediastinal silhouette is normal. There is no free air. Moderate small bowel dilatation is similar to prior exam. There are cholecystectomy clips. IMPRESSION: 1. No significant change in small bowel dilatation which suggests a persistent small bowel obstruction. 2. No free air. 3. No acute cardiopulmonary findings. Electronically signed by: Thierno Mccollum M.D. 02/15/2017 10:07 AM Dictated Date/Time: 02/15/2017 10:03 AM
--- NOTE | 2017-02-15 10:48 | HISTORY & PHYSICAL EXAMINATION ---
DATE OF ADMISSION: 02/15/2017 SUMMARY: Krystina is a 61-year-old female from the [facility], who is here for about a week to help care for her daughter's child; came in on 02/11/2017 through the Emergency Room complaining of significant abdominal pain during the day. Actually, she was babysitting her grandson when this happened. Her daughter had to come in from work and take over. She has described the pain as sharp and in waves, 06/28 when she first came in. She had 4 episodes of vomiting. Since she has been here, she was treated with an NG decompression and drained about 1800 on the ; was done to, as best I could tell, 1950 on the . The NG tube was removed yesterday. The patient had 2 bowel movements, but overnight, she apparently had a significant emesis. It is recorded as 2000 mL. PAST MEDICAL HISTORY: Her past medical history is positive for multiple surgeries, including a hysterectomy and apparently followed by a cholecystectomy that she had some problem with, then followed about 2 years ago, where at that time, she may have had acute appendicitis and the patient at that time had an appendectomy, but they explored the small bowel and they found that she had a Meckel's diverticulum that was resected. The patient states this happened 2 years ago and the diverticulum had to be resected with, partially, the small bowel. Since that time 2 years ago, she has never moved her bowels regularly. She also has a past history where she had colonoscopy and apparently, she was told she had Crohn's disease, although this was not verified whenever she had the exploratory lap and the Meckel's diverticulectomy. PAST SURGICAL HISTORY: Other than the Meckel's diverticulum, surgically, had a hysterectomy, appendectomy and cholecystectomy. She also had knee surgery. SOCIAL HISTORY: Socially, never smoked, not a drinker. ALLERGIES: No known allergies. MEDICATIONS: The medicine she is taking is purely [id number] type of medicine. REVIEW OF SYSTEMS: Review of systems 1-10 has been unremarkable. PHYSICAL EXAMINATION: GENERAL: As I see her now, this morning, she is in no acute distress. She is really not hungry and she was taking some liquids. VITAL SIGNS: Showed a temperature of 36.9, pulse 70, respirations 16, blood pressure 125/78. O2 sats 98 on room air. I\T\O, as stated, she did void and she had a bowel movement which was very small, but she had 2000 mL of emesis, at least reported. HEAD: Normocephalic. EYES: PERRLA. The sclerae is nonicteric. NECK: There is no cervical lymphadenopathy. Carotid without any bruits. HEART: Normal sinus. LUNGS: Clear. ABDOMEN: Softly distended, it is not completely benign. She is thin and so, you can almost feel some dilated small bowel loops. LABORATORY: Laboratory [facility], her BUN is 23, creatinine 0.81. White count is 5.17. The x-ray that she had yesterday showed no changes in the small bowel obstruction that she had had since she came in. We will repeat an x-ray today. I will keep her n.p.o. after midnight, but I suspect we will need to explore her tomorrow. I went over this with her. We would normally not like to proceed with surgery, as initial stated per patient, has had likely adhesions, but she failed conservative therapy and she will continue to do so. In my opinion, therefore, she will merit an exploration. This was discussed with the patient and we will proceed accordingly tomorrow. In the meantime, we will increase her IV fluids. RUPESH
--- NOTE | 2017-02-15 12:08 | Anesthesiology Progress Note ---
Anesthesia Progress Note Date of Service Feb 15, 2017. Progress Notes This is a 61 y/o w female presenting w/abdominal pain and diagnosed to have SBO.PMHx is sig. for Raynaud's disease,TMJ,Crohn's disease, which has resolved after an appendectomy and concurrent Meckel's diverticulum was resected. Pt is active,otherwise.Discussed anesthesia w/pt,risks vs benefits,all questions answered. Informed consent obtained.
--- NOTE | 2017-02-15 13:52 | Progress Note ---
Subjective Date of Service: Feb 15, 2017. Subjective Pt evaluation today including: conversation w/ patient, physical exam, lab review, review of studies, review of inpatient medication list Saw/examined the patient in room 379 Had nausea and vomiting episode overnight Less nausea this morning only tolerating some clears Problem List Medical Problems: (1) Lower abdominal pain Status: Acute (2) Nausea & vomiting Status: Acute (3) Small bowel obstruction Status: Acute Review of Systems Constitutional: No chills, No fever Respiratory: No shortness of breath Cardiac: No chest pain Abdomen: + diarrhea, + nausea, + pain, + vomiting, No GI bleeding, No constipation Heme: No abnormal bleeding/bruising Medications Current Inpatient Medications Medications (Trade) Dose Ordered Sig/Mary Route Start Time Stop Time Status Last Admin Dose Admin Ioversol (Optiray 320) 100 ml UD PRN IV 02/11/17 15:15 02/15/17 15:14 Ondansetron HCl 4 mg 4 mg Q6H PRN IV 02/11/17 17:30 03/13/17 17:29 02/15/17 13:46 4 MG Potassium Chloride/Sodium Chloride (Nss + 20meq KCl 1000ml) 1,000 ml @ 150 mls/hr Q6H40M IV 02/11/17 20:00 02/15/17 11:57 150 MLS/HR Miscellaneous (Iv Fluids Completed) 1 ea PRN PRN N/A 02/11/17 18:00 02/11/18 17:59 Ketorolac Tromethamine (Toradol Inj) 30 mg Q6H PRN IV 02/11/17 18:15 02/16/17 18:14 02/13/17 17:39 30 MG Docusate Sodium 100 mg 100 mg BID PO 02/11/17 21:00 03/13/17 20:59 02/15/17 09:02 100 MG Acetaminophen 650 mg/Empty Bag 65 ml @ 260 mls/hr Q4H PRN IV 02/12/17 10:45 03/14/17 10:44 02/14/17 00:01 260 MLS/HR Promethazine HCl/ Sodium Chloride (Phenergan Inj/ Nss 50ml) 50.5 ml @ 204 mls/hr Q6H PRN IV 02/14/17 18:30 03/16/17 18:29 Objective Vital Signs Date Time Temp Pulse Resp B/P Pulse Ox O2 Delivery O2 Flow Rate FiO2 02/15/17 07:15 36.9 70 16 125/78 98 Room Air 02/15/17 07:15 94 Room Air 02/14/17 23:35 Room Air 02/14/17 23:33 36.9 85 16 137/86 95 Room Air 02/14/17 15:40 Room Air 02/14/17 15:03 37.3 85 16 143/90 98 Room Air Physical Exam General Appearance: no apparent distress, + thin Respiratory/Chest: lungs clear, normal breath sounds, no respiratory distress, no accessory muscle use Cardiovascular: regular rate, rhythm, no edema, no murmur Abdomen: normal bowel sounds, soft, + tenderness (diffusely, worse in the lower quadrants) Extremities: normal inspection, no pedal edema Laboratory Results Last 24 Hours Test 02/15/17 06:05 White Blood Count 5.17 K/uL Red Blood Count 4.40 M/uL Hemoglobin 13.3 g/dL Hematocrit 40.4 % Mean Corpuscular Volume 91.8 fL Mean Corpuscular Hemoglobin 30.2 pg Mean Corpuscular Hemoglobin Concent 32.9 g/dl RDW Standard Deviation 45.5 fL RDW Coefficient of Variation 13.5 % Platelet Count 197 K/uL Mean Platelet Volume 9.6 fL Sodium Level 144 mmol/L Potassium Level 3.7 mmol/L Chloride Level 106 mmol/L Carbon Dioxide Level 31 mmol/L Anion Gap 7.0 mmol/L Blood Urea Nitrogen 23 mg/dl Creatinine 0.81 mg/dl Est Creatinine Clear Calc Drug Dose 75.4 ml/min Estimated GFR () 92.1 Estimated GFR (Non- 79.5 BUN/Creatinine Ratio 28.9 Random Glucose 112 mg/dl Calcium Level 8.9 mg/dl Assessment and Plan This is a 61 year old female with a complicated surgical history including cholecystectomy with complications including a biloma, appendectomy, hysterectomy, Meckel's diverticulum presents with nausea/vomiting and abdominal pain and subsequently found to have small bowel obstruction Small Bowel Obstruction 02/15 appreciate general surgery input plan is for possible exploration in AM clears + IVFs, antiemetics NPO after midnight 02/14 NGT removed; patient was having a difficult time with it she has passed gas and had a bowel movement added Phenergan to see if that helps with nausea continue Zofran PRN IVFs continue sips of clears as tolerated 02/13 KUB this AM = SBO no passing gas, no BM yet continue NGT, IVFs, NPO status 02/[address] = possible small bowel obstruction NPO + IVFs (sips and chips) patient continued to have significant tenderness and vomiting episodes this AM ( 02/12) IV tylenol + IV toradol for pain Zofran PRN for nausea NGT inserted with intermittent suction - 400cc removed immediately; and continues to drain if pain persist, will consult general surgery DVT ppx SCDs FULL CODE
[2017-02-15 15:15] VITALS: BP 135/87; PULSE 77; TEMP 37.1; O2SAT 94
[2017-02-15 23:15] VITALS: BP 138/81; PULSE 71; TEMP 37; O2SAT 100
[2017-02-16] VITALS (10 sets, daily range): BP systolic 121–151; BP diastolic 75–94; PULSE 69–85; TEMP 36.3–36.9; O2SAT 95–100
[2017-02-16] MEDS: NSS + 20MEQ KCL 1000ML 1,000 ML IV SCH ×4 (01:31→21:50)
[2017-02-16 06:31] LABS: HEMATOCRIT 43.1 % (37-47); MEAN CELL VOLUME 91.3 fL (80-100); MEAN CORPUSCULAR HEMOGLOBIN 28.6 pg (25-34); MEAN CORPUSCULAR HGB CONC 31.3 g/dl (32-36); MEAN PLATELET VOLUME 9.1 fL (7.4-10.4); PLATELET COUNT 201 K/uL (130-400); RED BLOOD COUNT 4.72 M/uL (4.2-5.4)
[2017-02-16 06:54] LABS: BUN/CREATININE RATIO 25.9 (10-20); CALCIUM 8.7 mg/dl (8.5-10.1); CREATININE 0.72 mg/dl (0.60-1.20); POTASSIUM 3.9 mmol/L (3.5-5.1)
[2017-02-16] MEDS ORDERED: PROPOFOL IV EMULSION 10 MG/ML 20 ML VIAL IV ONE (07:02)
[2017-02-16] MEDS ORDERED: FENTANYL CITRATE INJ 50 MCG/1 ML 2 ML VIAL ONE (07:02)
[2017-02-16] MEDS ORDERED: SUCCINYLCHOLINE CHLORIDE 20 MG/ML 10 ML VIAL IV ONE (07:02)
[2017-02-16] MEDS ORDERED: LIDOCAINE HCL 2% 2 ML VIAL (20MG/ML) ONE (07:02)
[2017-02-16] MEDS ORDERED: MIDAZOLAM HCL 1 MG/ML 2ML VIAL ONE (07:02)
--- NOTE | 2017-02-16 07:13 | History & Physical Bridge Note ---
H&P Re-Evaluation Bridge Note: I have examined the patient, reviewed the History & Physical and in the interval since the performance of the History & Physical I have noted the following changes of clinical significance: No changes noted refused NG tube last night and had few emesis family to be here later abd unchanged
[2017-02-16] MEDS ORDERED: CEFOXITIN SOD 1 GM VIAL ONE (07:46)
[2017-02-16] MEDS ORDERED: ATROPINE SULFATE 0.1 MG/ML 5ML SYR IV PRN (08:00)
[2017-02-16] MEDS ORDERED: EpHEDrine SULFATE INJ 50 MG/ML AMP IV PRN (08:00)
[2017-02-16] MEDS ORDERED: PHENYLEPHRINE 100MCG/ML 5ML SYR IV PRN (08:00)
[2017-02-16] MEDS ORDERED: ONDANSETRON INJ 2 MG/ML 2 ML VIAL IV PRN (08:00)
[2017-02-16] MEDS ORDERED: NEOSTIGMINE METHYLSULFATE 5 MG/5 ML SYR ONE (08:01)
[2017-02-16] MEDS ORDERED: GLYCOPYRROLATE INJ 0.2 MG/ML VIAL ONE (08:01)
--- NOTE | 2017-02-16 08:13 | [facility] Post Operative Brief Note ---
Immediate Operative Summary Operative Date February 16, 2017. Pre-Operative Diagnosis Small Bowel Obstruction, Post-Operative Diagnosis Adhesions, Incarcerated Umbilical Hernia Procedure(s) Performed Exploratory Laparotomy, lysis of adhesions, and Incarcerated Umbilical Hernia Repair Surgeon Dr. Stephens Junior Accounting Clerk Surgeon(s) Devin Apple-PAC and Sydnei Cohn-PAC Estimated Blood Loss 3 Findings single band distal jejunum causing complete obstruction and small inc umbilical hernia Specimens A:Incarcerated Tissue Microbiology- #1 Urine
[2017-02-16] MEDS ORDERED: MoRPHine SULFATE 4 MG/ML 1 ML CARP\\VIAL IV PRN (08:15)
[2017-02-16] MEDS ORDERED: DiphenhydrAMINE HCL 50 MG/ML VIAL ONE (08:24)
[2017-02-16] MEDS ORDERED: DEXAMETHASONE SOD INJ 4 MG/ML VIAL ONE (08:26)
[2017-02-16] MEDS ORDERED: ROCURONIUM BROMIDE 10 MG/ML 5 ML VIAL ONE (08:26)
[2017-02-16] MEDS ORDERED: ONDANSETRON INJ 2 MG/ML 2 ML VIAL ONE (08:26)
[2017-02-16] MEDS: HYDROmorphone INJ 2 MG/ML SYR/VIAL IV PRN ×3 (08:30→08:40)
--- NOTE | 2017-02-16 08:38 | OPERATIVE REPORT ---
DATE OF OPERATION: 02/16/2017 SURGEON: Dr. Stephens. ASSOCIATE PROFESSOR OF EDUCATION: Carl Apple PA-C, and Sydnie Fair PA-C. PREOPERATIVE DIAGNOSIS: Small-bowel obstruction. POSTOPERATIVE DIAGNOSES: Same and incarcerated umbilical hernia. PROCEDURE: Exploratory lysis of 1 adhesive band, repair incarcerated umbilical hernia. SUMMARY: The patient was brought into the operating room theater under general anesthetic. The abdomen was prepped with Betadine solution and properly draped. An NG tube had been positioned. We made an incision around the umbilicus, above and below to the left, deepened through subcutaneous tissue. The incision was about 3 inches long. Once we entered the abdominal cavity without any difficulty, we were met with what we could see some dilated small-bowel, some free fluid serous in nature was seen. At this point, using this incision, we then milked the small-bowel to the point there was a dilated segment distally, and in the distal jejunal area, we found a completely adhesive band cutting in through the segment of bowel. This was completely obstructing it distally. The area was decompressed and definite transition point was found. We at this point returned small amount of small-bowel that we had taken out of the abdomen to explore intraabdominally, then closed the wound with interrupted #1 PDS. What I found in the umbilical area, there was about a centimeter and a half incarcerated fatty tissue. We freed the umbilical tissue from the abdominal wall fascia and then closed it with interrupted #1 PDS. The incarcerated fatty tissue was sent. Subcutaneous tissue was irrigated and yudy for skin edges. Dressing was applied. The procedure was tolerated well by the patient. Estimated blood loss approximately 3 mL. The patient was taken to recovery room in good condition. I attest to the content of the Intraoperative Record and any orders documented therein. Any exceptions are noted below. MTDD
[2017-02-16] MEDS: DOCUSATE SODIUM 100 MG CAP PO SCH ×2 (09:00→21:00)
--- NOTE | 2017-02-16 12:07 | Anesthesiology Progress Note ---
Anesthesia Post Op Note Date & Time February 16, 2017 at 12:06 Vital Signs Pain Intensity: 0.0 Vital Signs Past 12 Hours Date Time Temp Pulse Resp B/P Pulse Ox O2 Delivery O2 Flow Rate FiO2 02/16/17 11:14 36.5 75 19 128/84 98 Nasal Cannula 3.0 02/16/17 10:17 36.3 75 18 121/75 98 Nasal Cannula 3.0 02/16/17 09:43 36.5 75 18 127/77 99 Nasal Cannula 3.0 02/16/17 09:10 36.4 76 16 127/87 95 Nasal Cannula 3.0 02/16/17 09:10 95 Nasal Cannula 3.0 02/16/17 09:10 95 Nasal Cannula 3.0 02/16/17 08:55 36.4 66 18 138/82 100 Nasal Cannula 3 02/16/17 08:45 65 18 136/81 100 Nasal Cannula 3 02/16/17 08:35 69 18 146/88 100 Mask 10 02/16/17 08:25 77 16 132/80 100 Mask 10 02/16/17 08:15 36.5 80 16 142/87 100 Mask 10 02/16/17 07:07 36.9 85 16 139/82 99 Room Air Notes Mental Status: alert / awake / arousable, participated in evaluation Pt Amnestic to Procedure: Yes Nausea / Vomiting: adequately controlled Pain: adequately controlled Airway Patency, RR, SpO2: stable & adequate BP & HR: stable & adequate Hydration State: stable & adequate Anesthetic Complications: no major complications apparent
--- NOTE | 2017-02-16 13:54 | Progress Note ---
Subjective Date of Service: February 16, 2017. Subjective Pt evaluation today including: conversation w/ patient, conversation w/ family , physical exam, lab review, review of studies, review of inpatient medication list Saw/examined the patient in room 379 Came back from the OR this morning states that the pain is under control the NG tube is tolerable no issues to note Problem List Medical Problems: (1) Lower abdominal pain Status: Acute (2) Nausea & vomiting Status: Acute (3) Small bowel obstruction Status: Acute Review of Systems Constitutional: No chills, No fever, No weakness, No weight loss Respiratory: No cough, No shortness of breath, No sputum Cardiac: No chest pain Abdomen: + nausea, + pain, No GI bleeding, No constipation, No diarrhea, No vomiting Medications Current Inpatient Medications Medications (Trade) Dose Ordered Sig/Mary Route Start Time Stop Time Status Last Admin Dose Admin Ondansetron HCl 4 mg 4 mg Q6H PRN IV 02/11/17 17:30 03/13/17 17:29 02/15/17 13:46 4 MG Potassium Chloride/Sodium Chloride (Nss + 20meq KCl 1000ml) 1,000 ml @ 150 mls/hr [id number] IV 02/11/17 20:00 02/16/17 09:15 150 MLS/HR Miscellaneous (Iv Fluids Completed) 1 ea PRN PRN N/A 02/11/17 18:00 02/11/18 17:59 Ketorolac Tromethamine (Toradol Inj) 30 mg Q6H PRN IV 02/11/17 18:15 02/16/17 18:14 02/13/17 17:39 30 MG Docusate Sodium 100 mg 100 mg BID PO 02/11/17 21:00 03/13/17 20:59 02/15/17 21:08 100 MG Acetaminophen 650 mg/Empty Bag 65 ml @ 260 mls/hr Q4H PRN IV 02/12/17 10:45 03/14/17 10:44 02/14/17 00:01 260 MLS/HR Promethazine HCl/ Sodium Chloride (Phenergan Inj/ Nss 50ml) 50.5 ml @ 204 mls/hr Q6H PRN IV 02/14/17 18:30 03/16/17 18:29 02/15/17 21:08 204 MLS/HR Morphine Sulfate (MoRPHine SULFATE INJ) 4 mg Q1H PRN IV 02/16/17 08:15 03/02/17 08:14 Objective Vital Signs Date Time Temp Pulse Resp B/P Pulse Ox O2 Delivery O2 Flow Rate FiO2 02/16/17 12:10 36.5 73 20 127/79 99 Nasal Cannula 3.0 02/16/17 11:14 36.5 75 19 128/84 98 Nasal Cannula 3.0 02/16/17 10:17 36.3 75 18 121/75 98 Nasal Cannula 3.0 02/16/17 09:43 36.5 75 18 127/77 99 Nasal Cannula 3.0 02/16/17 09:10 36.4 76 16 127/87 95 Nasal Cannula 3.0 02/16/17 09:10 95 Nasal Cannula 3.0 02/16/17 09:10 95 Nasal Cannula 3.0 02/16/17 08:55 36.4 66 18 138/82 100 Nasal Cannula 3 02/16/17 08:45 65 18 136/81 100 Nasal Cannula 3 02/16/17 08:35 69 18 146/88 100 Mask 10 02/16/17 08:25 77 16 132/80 100 Mask 10 02/16/17 08:15 36.5 80 16 142/87 100 Mask 10 02/16/17 07:07 36.9 85 16 139/82 99 Room Air 02/15/17 23:50 Room Air 02/15/17 23:15 37.0 71 16 138/81 100 Room Air 02/15/17 15:40 Room Air 02/15/17 15:15 37.1 77 18 135/87 94 Room Air Physical Exam General Appearance: no apparent distress, + thin Respiratory/Chest: lungs clear, normal breath sounds, no respiratory distress, no accessory muscle use Cardiovascular: regular rate, rhythm, no edema, no murmur Abdomen: normal bowel sounds, soft, + tenderness Extremities: normal inspection, no pedal edema Laboratory Results Last 24 Hours Test 02/16/17 06:12 White Blood Count 5.60 K/uL Red Blood Count 4.72 M/uL Hemoglobin 13.5 g/dL Hematocrit 43.1 % Mean Corpuscular Volume 91.3 fL Mean Corpuscular Hemoglobin 28.6 pg Mean Corpuscular Hemoglobin Concent 31.3 g/dl RDW Standard Deviation 44.3 fL RDW Coefficient of Variation 13.4 % Platelet Count 201 K/uL Mean Platelet Volume 9.1 fL Sodium Level 144 mmol/L Potassium Level 3.9 mmol/L Chloride Level 111 mmol/L Carbon Dioxide Level 26 mmol/L Anion Gap 7.0 mmol/L Blood Urea Nitrogen 19 mg/dl Creatinine 0.72 mg/dl Est Creatinine Clear Calc Drug Dose 84.8 ml/min Estimated GFR () 106.2 Estimated GFR (Non- 91.7 BUN/Creatinine Ratio 25.9 Random Glucose 88 mg/dl Calcium Level 8.7 mg/dl Assessment and Plan This is a 61 year old female with a complicated surgical history including cholecystectomy with complications including a biloma, appendectomy, hysterectomy, Meckel's diverticulum presents with nausea/vomiting and abdominal pain and subsequently found to have small bowel obstruction Small Bowel Obstruction 02/16 s/p lysis of adhesions s/p repair of inguinal hernia doing well; pain controlled NGT in abdomen is soft advance diet as per general surgery; appreciate management 02/15 appreciate general surgery input plan is for possible exploration in AM clears + IVFs, antiemetics NPO after midnight 02/14 NGT removed; patient was having a difficult time with it she has passed gas and had a bowel movement added Phenergan to see if that helps with nausea continue Zofran PRN IVFs continue sips of clears as tolerated 02/13 KUB this AM = SBO no passing gas, no BM yet continue NGT, IVFs, NPO status 02/[address] = possible small bowel obstruction NPO + IVFs (sips and chips) patient continued to have significant tenderness and vomiting episodes this AM ( 02/12) IV tylenol + IV toradol for pain Zofran PRN for nausea NGT inserted with intermittent suction - 400cc removed immediately; and continues to drain if pain persist, will consult general surgery DVT ppx SCDs FULL CODE
[2017-02-16] MEDS: KETOROLAC TROMETHAMINE 30 MG/ML VIAL IV PRN (16:20)
[2017-02-16] MEDS: ACETAMINOPHEN IV 650 MG in EMPTY BAG 0 ML IV PRN (16:38)
[2017-02-17] VITALS (8 sets, daily range): BP systolic 127–154; BP diastolic 77–92; PULSE 74–86; TEMP 36.8–37.3; O2SAT 97–99
[2017-02-17] MEDS: ACETAMINOPHEN IV 650 MG in EMPTY BAG 0 ML IV PRN ×3 (00:28→10:49)
[2017-02-17] MEDS: NSS + 20MEQ KCL 1000ML 1,000 ML IV SCH ×3 (04:28→15:31)
[2017-02-17] MEDS ORDERED: OXYCODONE/ACETAMINOPHEN 5-325 TAB PO PRN (07:00)
[2017-02-17 07:22] LABS: HEMATOCRIT 40.1 % (37-47); MEAN CELL VOLUME 90.3 fL (80-100); MEAN CORPUSCULAR HGB CONC 33.2 g/dl (32-36); MEAN PLATELET VOLUME 9.4 fL (7.4-10.4); PLATELET COUNT 206 K/uL (130-400); RED BLOOD COUNT 4.44 M/uL (4.2-5.4); WHITE BLOOD COUNT 6.92 K/uL (4.8-10.8)
--- NOTE | 2017-02-17 07:45 | SURGERY PROGRESS NOTE ---
DATE: 02/17/2017 Krystina is 1st postoperative day exploratory lap, lysis with 1 adhesive band. She is sitting at the side of bed. She is comfortable. Intraoperative findings were discussed with her. Her last vitals showed a temperature of 36.8, pulse 79, respirations 16, blood pressure 122/77, O2 sats 96 on room air. Her I\T\O she had 575 urine overnight. NG output is very minimal at 100. She is sitting there with no discomfort. At this point we will discontinue the NG tube and discontinue the Hayes, increase activity, start minimally on clear liquids. Discharge her when her GI function returns which I would expect in the next 24-48 hours.
[2017-02-17 08:01] LABS: BUN/CREATININE RATIO 23.9 (10-20); CALCIUM 8.5 mg/dl (8.5-10.1); CREATININE 0.54 mg/dl (0.60-1.20); POTASSIUM 3.8 mmol/L (3.5-5.1)
[2017-02-17] MEDS: DOCUSATE SODIUM 100 MG CAP PO SCH ×2 (09:14→20:19)
--- NOTE | 2017-02-17 09:50 | Anesthesiology Progress Note ---
Anesthesia Post Op Note Date & Time February 17, 2017 at 09:49 Vital Signs Pain Intensity: 4.0 Vital Signs Past 12 Hours Date Time Temp Pulse Resp B/P Pulse Ox O2 Delivery O2 Flow Rate FiO2 02/17/17 07:18 37.1 86 16 130/83 99 Room Air 02/17/17 03:29 36.8 79 16 127/77 98 Room Air 02/16/17 23:55 Room Air 02/16/17 23:27 36.9 77 16 145/83 99 Room Air Notes Mental Status: alert / awake / arousable, participated in evaluation Pt Amnestic to Procedure: Yes Nausea / Vomiting: adequately controlled Pain: adequately controlled Airway Patency, RR, SpO2: stable & adequate BP & HR: stable & adequate Hydration State: stable & adequate Anesthetic Complications: no major complications apparent
--- NOTE | 2017-02-17 12:26 | Progress Note ---
Subjective Date of Service: February 17, 2017. Subjective Pt evaluation today including: conversation w/ patient, physical exam, lab review, review of studies, review of inpatient medication list Saw/examined the patient in room 379 NGT removed yesterday, she feels better due to this has some crampy abdominal pain; tolerating sips of clears for now +bowel movement Problem List Medical Problems: (1) Lower abdominal pain Status: Acute (2) Nausea & vomiting Status: Acute (3) Small bowel obstruction Status: Acute Review of Systems Constitutional: + weakness, No chills, No fever Respiratory: No shortness of breath Cardiac: No chest pain Abdomen: + pain, No GI bleeding, No constipation, No diarrhea, No nausea, No vomiting Medications Current Inpatient Medications Medications (Trade) Dose Ordered Sig/Mary Route Start Time Stop Time Status Last Admin Dose Admin Ondansetron HCl 4 mg 4 mg Q6H PRN IV 02/11/17 17:30 03/13/17 17:29 02/15/17 13:46 4 MG Potassium Chloride/Sodium Chloride (Nss + 20meq KCl 1000ml) 1,000 ml @ 75 mls/hr [id number] IV 02/11/17 20:00 03/13/17 19:59 02/17/17 12:10 75 MLS/HR Miscellaneous (Iv Fluids Completed) 1 ea PRN PRN N/A 02/11/17 18:00 02/11/18 17:59 Docusate Sodium 100 mg 100 mg BID PO 02/11/17 21:00 03/13/17 20:59 02/17/17 09:14 100 MG Acetaminophen 650 mg/Empty Bag 65 ml @ 260 mls/hr Q4H PRN IV 02/12/17 10:45 03/14/17 10:44 02/17/17 10:49 260 MLS/HR Promethazine HCl/ Sodium Chloride (Phenergan Inj/ Nss 50ml) 50.5 ml @ 204 mls/hr Q6H PRN IV 02/14/17 18:30 03/16/17 18:29 02/15/17 21:08 204 MLS/HR Morphine Sulfate (MoRPHine SULFATE INJ) 4 mg Q1H PRN IV 02/16/17 08:15 03/02/17 08:14 Heparin Sodium (Porcine) (Heparin Sq 5000 Unit/0.5ml) 5000 unit Q8 SQ 02/17/17 14:00 03/19/17 13:59 UNV Oxycodone/ Acetaminophen (Percocet 5-325mg Tab) 1 tab Q4H PRN PO 02/17/17 07:00 03/03/17 06:59 Objective Vital Signs Date Time Temp Pulse Resp B/P Pulse Ox O2 Delivery O2 Flow Rate FiO2 02/17/17 12:04 36.9 74 18 154/92 99 Room Air 02/17/17 07:30 Room Air 02/17/17 07:18 37.1 86 16 130/83 99 Room Air 02/17/17 03:29 36.8 79 16 127/77 98 Room Air 02/16/17 23:55 Room Air 02/16/17 23:27 36.9 77 16 145/83 99 Room Air 02/16/17 19:57 36.9 69 16 127/77 99 Room Air 02/16/17 17:22 100 Nasal Cannula 1.0 02/16/17 15:43 36.7 81 18 151/94 100 Room Air Physical Exam General Appearance: no apparent distress Respiratory/Chest: no respiratory distress, no accessory muscle use Abdomen: normal bowel sounds, soft, + tenderness (mildy tender) Laboratory Results Last 24 Hours Test 02/17/17 06:46 02/17/17 08:15 White Blood Count 6.92 K/uL Red Blood Count 4.44 M/uL Hemoglobin 13.3 g/dL Hematocrit 40.1 % Mean Corpuscular Volume 90.3 fL Mean Corpuscular Hemoglobin 30.0 pg Mean Corpuscular Hemoglobin Concent 33.2 g/dl RDW Standard Deviation 43.8 fL RDW Coefficient of Variation 13.2 % Platelet Count 206 K/uL Mean Platelet Volume 9.4 fL Sodium Level 140 mmol/L Potassium Level 3.8 mmol/L Chloride Level 107 mmol/L Carbon Dioxide Level 21 mmol/L Anion Gap 12.0 mmol/L Blood Urea Nitrogen 13 mg/dl Creatinine 0.54 mg/dl Est Creatinine Clear Calc Drug Dose 113.1 ml/min Estimated GFR () 119.7 Estimated GFR (Non- 103.3 BUN/Creatinine Ratio 23.9 Random Glucose 61 mg/dl Calcium Level 8.5 mg/dl Magnesium Level 2.0 mg/dl Activated Partial Thromboplast Time 25.0 SECONDS Partial Thromboplastin Ratio 1.0 Assessment and Plan This is a 61 year old female with a complicated surgical history including cholecystectomy with complications including a biloma, appendectomy, hysterectomy, Meckel's diverticulum presents with nausea/vomiting and abdominal pain and subsequently found to have small bowel obstruction Small Bowel Obstruction 5/2 s/p lysis of adhesions POD #1 NGT removed clears advance as tolerated encouraged ambulation d/c home when diet advanced 5/ s/p lysis of adhesions s/p repair of inguinal hernia doing well; pain controlled NGT in abdomen is soft advance diet as per general surgery; appreciate management 02/15 appreciate general surgery input plan is for possible exploration in AM clears + IVFs, antiemetics NPO after midnight 02/14 NGT removed; patient was having a difficult time with it she has passed gas and had a bowel movement added Phenergan to see if that helps with nausea continue Zofran PRN IVFs continue sips of clears as tolerated 02/13 KUB this AM = SBO no passing gas, no BM yet continue NGT, IVFs, NPO status 02/[address] = possible small bowel obstruction NPO + IVFs (sips and chips) patient continued to have significant tenderness and vomiting episodes this AM ( 02/12) IV tylenol + IV toradol for pain Zofran PRN for nausea NGT inserted with intermittent suction - 400cc removed immediately; and continues to drain if pain persist, will consult general surgery DVT ppx SCDs FULL CODE
[2017-02-17 15:18] LABS: PROTHROMBIN TIME (PATIENT) 10.5 SECONDS (9.0-12.0)
[2017-02-17] MEDS: HEPARIN SOD 5000 UNIT/0.5 ML CARP SQ SCH ×2 (16:30→23:00)
[2017-02-18] MEDS: NSS + 20MEQ KCL 1000ML 1,000 ML IV SCH ×2 (02:56→16:45)
[2017-02-18] MEDS: HEPARIN SOD 5000 UNIT/0.5 ML CARP SQ SCH ×3 (05:34→21:54)
[2017-02-18 06:27] LABS: HEMATOCRIT 37.8 % (37-47); MEAN CELL VOLUME 87.7 fL (80-100); MEAN CORPUSCULAR HEMOGLOBIN 29.7 pg (25-34); MEAN CORPUSCULAR HGB CONC 33.9 g/dl (32-36); MEAN PLATELET VOLUME 8.8 fL (7.4-10.4); PLATELET COUNT 198 K/uL (130-400); RED BLOOD COUNT 4.31 M/uL (4.2-5.4); WHITE BLOOD COUNT 6.67 K/uL (4.8-10.8)
--- NOTE | 2017-02-18 07:04 | SURGERY PROGRESS NOTE ---
DATE: 02/18/2017 Krystina is second postoperative day status post exploratory lap, lysis of adhesions. Yesterday, she had a small emesis, but she was eating. She has had a few bowel movements. Today, she is up and around without any problem. Last vitals showed a temperature of 37, pulse 86, respirations 16, blood pressure 144/84, O2 sats 99 on room air. Laboratory this morning, hemoglobin is 12.8. WBC 6.67, BUN and creatinine is pending. The abdomen is minimally distended. I advised the patient to go slow with her diet; it will probably take another day or so to really reestablish her GI function. She had 3 bowel movements yesterday; she already had one this morning.
[2017-02-18 07:18] LABS: BUN/CREATININE RATIO 12.9 (10-20); CALCIUM 8.4 mg/dl (8.5-10.1); CREATININE 0.53 mg/dl (0.60-1.20); POTASSIUM 3.7 mmol/L (3.5-5.1)
[2017-02-18 07:35] VITALS: BP 124/78; PULSE 84; TEMP 36.8; O2SAT 98
[2017-02-18] MEDS: DOCUSATE SODIUM 100 MG CAP PO SCH ×2 (08:15→20:50)
[2017-02-18] MEDS: ACETAMINOPHEN 325 MG TAB PO PRN ×3 (08:29→21:15)
[2017-02-18 15:00] VITALS: BP 151/91; PULSE 73; TEMP 36.9; O2SAT 99
[2017-02-18 20:00] VITALS: BP 148/86; PULSE 66
--- NOTE | 2017-02-18 22:49 | Progress Note ---
Medicine Progress Note Date & Time of Visit: February 18, 2017 at 15:26. Subjective 61 yo F with SBO 2/2 adhesions s/p ex lap on 02/16 -doing well overall -denies pain or nausea -tolerating PO but only jello and clears at this time -she is fearful that she will have a problem -some bloating present, helps when she passes gas -she has had "little spurts" of stool. Objective Last 8 Hrs Date Time Temp Pulse Resp B/P Pulse Ox O2 Delivery O2 Flow Rate FiO2 02/18/17 07:50 Room Air 02/18/17 07:35 36.8 84 14 124/78 98 Room Air Physical Exam: GEN: WNWD, in no acute distress, alert and appropriate HEENT: NC/AT, normal sclerae CARDIO: reg rate, S1/2 heard without m/g/r LUNGS: CTA bilaterally, no crackles, rales or wheezes, good diaphragmatic excursion ABD: soft, non-tender, non-distended, no rebound or guarding, +BS, incision covered with dressing that is c/d/i in infraumbilical area. EXTREMITY: no LE swelling or edema, extremities are warm and well-perfused, - Mariana's sign bilat NEURO: CN 2-12 grossly intact, no gross focal deficits MUSC: 5/5 strength throughout, no focal deficits, ambulatory SKIN: warm and dry and abdominal wound as above. Laboratory Results: 02/18/17 06:18 02/18/17 06:18 Test 02/11/17 12:45 02/11/17 15:08 02/17/17 06:46 02/17/17 08:15 Immature Granulocyte % (Auto) 0.2 % White Blood Count 12.22 K/uL (4.8-10.8) Red Blood Count 5.20 M/uL (4.2-5.4) Hemoglobin 15.7 g/dL (12.0-16.0) Hematocrit 46.9 % (37-47) Mean Corpuscular Volume 90.2 fL (80-100) Mean Corpuscular Hemoglobin 30.2 pg (25-34) Mean Corpuscular Hemoglobin Concent 33.5 g/dl (32-36) Platelet Count 218 K/uL (130-400) Mean Platelet Volume 9.8 fL (7.4-10.4) Neutrophils (%) (Auto) 89.3 % Lymphocytes (%) (Auto) 6.5 % Monocytes (%) (Auto) 3.7 % Eosinophils (%) (Auto) 0.2 % Basophils (%) (Auto) 0.1 % Neutrophils # (Auto) 10.92 K/uL (1.4-6.5) Lymphocytes # (Auto) 0.79 K/uL (1.2-3.4) Monocytes # (Auto) 0.45 K/uL (0.11-0.59) Eosinophils # (Auto) 0.03 K/uL (0-0.5) Basophils # (Auto) 0.01 K/uL (0-0.2) Immature Granulocyte # (Auto) 0.02 K/uL (0.00-0.02) Total Bilirubin 0.7 mg/dl (0.2-1) Direct Bilirubin 0.1 mg/dl (0-0.2) Aspartate Amino Transf (AST/SGOT) 23 U/L (15-37) Alanine Aminotransferase (ALT/SGPT) 27 U/L (12-78) Alkaline Phosphatase 88 U/L (45-117) Total Protein 8.0 gm/dl (6.4-8.2) Albumin 4.3 gm/dl (3.4-5.0) Lipase 148 U/L (73-393) Urine Color YELLOW Urine Appearance TURBID (CLEAR) Urine pH >= 9.0 (4.5-7.5) Urine Specific [place] 1.013 (1.000-1.030) Urine Protein NEG (NEG) Urine Glucose (UA) NEG (NEG) Urine Ketones TRACE (NEG) Urine Occult Blood NEG (NEG) Urine Nitrite NEG (NEG) Urine Bilirubin NEG (NEG) Urine Urobilinogen NEG (NEG) Urine Leukocyte Esterase NEG (NEG) Urine WBC (Auto) 1-5 /hpf (0-5) Urine RBC (Auto) 0-4 /hpf (0-4) Urine Hyaline Casts (Auto) 1-5 /lpf (0-5) Urine Epithelial Cells (Auto) 20-30 /lpf (0-5) Urine Bacteria (Auto) NEG (NEG) Magnesium Level 2.0 mg/dl (1.8-2.4) Activated Partial Thromboplast Time 25.0 SECONDS (21.0-31.0) Partial Thromboplastin Ratio 1.0 Test 02/17/17 14:40 02/18/17 06:18 Prothrombin Time 10.5 SECONDS (9.0-12.0) Prothromb Time International Ratio 1.0 (0.9-1.1) Red Blood Count 4.31 M/uL (4.2-5.4) Mean Corpuscular Volume 87.7 fL (80-100) Mean Corpuscular Hemoglobin 29.7 pg (25-34) Mean Corpuscular Hemoglobin Concent 33.9 g/dl (32-36) RDW Standard Deviation 42.0 fL (36.4-46.3) RDW Coefficient of Variation 12.9 % (11.5-14.5) Mean Platelet Volume 8.8 fL (7.4-10.4) Anion Gap 8.0 mmol/L (3-11) Est Creatinine Clear Calc Drug Dose 115.3 ml/min Estimated GFR () 120.5 Estimated GFR (Non- 103.9 BUN/Creatinine Ratio 12.9 (10-20) Calcium Level 8.4 mg/dl (8.5-10.1) Date/Time Source Procedure Growth Status 02/16/17 07:30 Urine,Catheterized Urine Culture - Final NO GROWTH - LESS THAN 1,000 COLONIES/ML Complete Last 24 Hours Test 02/18/17 06:18 White Blood Count 6.67 K/uL Red Blood Count 4.31 M/uL Hemoglobin 12.8 g/dL Hematocrit 37.8 % Mean Corpuscular Volume 87.7 fL Mean Corpuscular Hemoglobin 29.7 pg Mean Corpuscular Hemoglobin Concent 33.9 g/dl RDW Standard Deviation 42.0 fL RDW Coefficient of Variation 12.9 % Platelet Count 198 K/uL Mean Platelet Volume 8.8 fL Sodium Level 140 mmol/L Potassium Level 3.7 mmol/L Chloride Level 106 mmol/L Carbon Dioxide Level 26 mmol/L Anion Gap 8.0 mmol/L Blood Urea Nitrogen 7 mg/dl Creatinine 0.53 mg/dl Est Creatinine Clear Calc Drug Dose 115.3 ml/min Estimated GFR () 120.5 Estimated GFR (Non- 103.9 BUN/Creatinine Ratio 12.9 Random Glucose 86 mg/dl Calcium Level 8.4 mg/dl Assessment & Plan This is a 61 year old female with a complicated surgical history including cholecystectomy with complications including a biloma, appendectomy, hysterectomy, Meckel's diverticulum presents with nausea/vomiting and abdominal pain and subsequently found to have small bowel obstruction Small Bowel Obstruction 5/2 s/p lysis of adhesions POD #2 tolerating clears advance as tolerated encouraged ambulation d/c home when diet advanced 5/ s/p lysis of adhesions s/p repair of inguinal hernia doing well; pain controlled NGT in abdomen is soft advance diet as per general surgery; appreciate management 02/15 appreciate general surgery input plan is for possible exploration in AM clears + IVFs, antiemetics NPO after midnight 02/14 NGT removed; patient was having a difficult time with it she has passed gas and had a bowel movement added Phenergan to see if that helps with nausea continue Zofran PRN IVFs continue sips of clears as tolerated 02/13 KUB this AM = SBO no passing gas, no BM yet continue NGT, IVFs, NPO status 02/[address] = possible small bowel obstruction NPO + IVFs (sips and chips) patient continued to have significant tenderness and vomiting episodes this AM ( 02/12) IV tylenol + IV toradol for pain Zofran PRN for nausea NGT inserted with intermittent suction - 400cc removed immediately; and continues to drain if pain persist, will consult general surgery DVT ppx Heparin q8--change to Lovenox 0 daily FULL CODE DO [facility] Hospitalist Consultants: Gen Surg Current Inpatient Medications: Current Inpatient Medications Medications (Trade) Dose Ordered Sig/Mary Route Start Time Stop Time Status Last Admin Dose Admin Ondansetron HCl 4 mg 4 mg Q6H PRN IV 02/11/17 17:30 03/13/17 17:29 02/15/17 13:46 4 MG Potassium Chloride/Sodium Chloride (Nss + 20meq KCl 1000ml) 1,000 ml @ 75 mls/hr [id number] IV 02/11/17 20:00 03/13/17 19:59 02/18/17 02:56 75 MLS/HR Miscellaneous (Iv Fluids Completed) 1 ea PRN PRN N/A 02/11/17 18:00 02/11/18 17:59 Docusate Sodium 100 mg 100 mg BID PO 02/11/17 21:00 03/13/17 20:59 02/18/17 08:15 100 MG Promethazine HCl/ Sodium Chloride (Phenergan Inj/ Nss 50ml) 50.5 ml @ 204 mls/hr Q6H PRN IV 02/14/17 18:30 03/16/17 18:29 02/15/17 21:08 204 MLS/HR Morphine Sulfate (MoRPHine SULFATE INJ) 4 mg Q1H PRN IV 02/16/17 08:15 03/02/17 08:14 Heparin Sodium (Porcine) (Heparin Sq 5000 Unit/0.5ml) 5,000 unit Q8 SQ 02/17/17 16:00 03/19/17 15:59 Oxycodone/ Acetaminophen (Percocet 5-325mg Tab) 1 tab Q4H PRN PO 02/17/17 07:00 03/03/17 06:59 Acetaminophen (Tylenol Tab) 650 mg Q6H PRN PO 02/18/17 08:30 03/20/17 08:29 02/18/17 15:10 650 MG
[2017-02-18 23:05] VITALS: BP 119/78; PULSE 75; TEMP 36.9; O2SAT 97
[2017-02-19] MEDS: NSS + 20MEQ KCL 1000ML 1,000 ML IV SCH (05:41)
--- NOTE | 2017-02-19 06:53 | SURGERY PROGRESS NOTE ---
DATE: 02/19/2017 Krystina is doing well. She has had multiple bowel movements. She feels fine and this is probably just due to the longstanding obstruction that she has had even prior to the most acute episode. Last vitals showed a temperature of 36.9, pulse 75, respirations 16, blood pressure 119/78 and O2 sats 97 on room air. Her I\T\O; she had 3200 mL out yesterday. She had 6 bowel movements. Her abdomen is benign. The incision is ecchymosis around the site. Heparin apparently was discontinued by the medical service and turned to Lovenox. We will discontinue the Lovenox and put her back on heparin. We will increase her activity, Hep-Lock her IVs and start her on a regular diet. She may shower. Re-evaluate later today or tomorrow. If she feels fine, she may be able to be discharged most likely tomorrow since she lives about 3 hours away.
[2017-02-19 07:02] LABS: HEMATOCRIT 38.1 % (37-47); MEAN CELL VOLUME 87.8 fL (80-100); MEAN CORPUSCULAR HGB CONC 34.1 g/dl (32-36); PLATELET COUNT 212 K/uL (130-400); RED BLOOD COUNT 4.34 M/uL (4.2-5.4); WHITE BLOOD COUNT 6.77 K/uL (4.8-10.8)
[2017-02-19 07:30] LABS: BUN/CREATININE RATIO 8.8 (10-20); CALCIUM 8.4 mg/dl (8.5-10.1); CREATININE 0.6 mg/dl (0.60-1.20); POTASSIUM 3.5 mmol/L (3.5-5.1)
[2017-02-19 07:35] VITALS: BP 124/80; PULSE 81; TEMP 36.8; O2SAT 97
[2017-02-19] MEDS: DOCUSATE SODIUM 100 MG CAP PO SCH ×2 (07:51→20:31)
[2017-02-19] MEDS: HEPARIN SOD 5000 UNIT/0.5 ML CARP SQ SCH ×2 (07:51→20:31)
[2017-02-19] MEDS ORDERED: ENOXAPARIN 40 MG/0.4 ML SYR SQ SCH (09:00)
[2017-02-19 09:38] VITALS: O2SAT 97
--- NOTE | 2017-02-19 13:18 | Progress Note ---
Medicine Progress Note Date & Time of Visit: February 19, 2017 at 13:15. Subjective -felt better this morning -tried some marianne fermin and scrambled eggs and became bloated and full -denies heartburn -has only incisional pain -denies nausea -ambulatory Objective Last 8 Hrs Date Time Temp Pulse Resp B/P Pulse Ox O2 Delivery O2 Flow Rate FiO2 02/19/17 09:38 97 Room Air 02/19/17 07:35 36.8 81 14 124/80 97 Room Air 02/19/17 07:30 Room Air Physical Exam: GEN: WNWD, in no acute distress, alert and appropriate HEENT: NC/AT, normal sclerae CARDIO: reg rate, S1/2 heard without m/g/r LUNGS: CTA bilaterally, no crackles, rales or wheezes, good diaphragmatic excursion ABD: soft, non-tender, non-distended, no rebound or guarding, +BS, incision site -vertical with yudy intact, no drainage or erythema-appears well-healing EXTREMITY: no LE swelling or edema, extremities are warm and well-perfused NEURO: CN 2-12 grossly intact, no gross focal deficits MUSC: 5/5 strength throughout, no focal deficits, ambulatory SKIN: warm and dry and abdominal wound as above. Laboratory Results: 02/19/17 06:42 02/19/17 06:42 Test 02/11/17 12:45 02/11/17 15:08 02/17/17 08:15 02/17/17 14:40 Immature Granulocyte % (Auto) 0.2 % White Blood Count 12.22 K/uL (4.8-10.8) Red Blood Count 5.20 M/uL (4.2-5.4) Hemoglobin 15.7 g/dL (12.0-16.0) Hematocrit 46.9 % (37-47) Mean Corpuscular Volume 90.2 fL (80-100) Mean Corpuscular Hemoglobin 30.2 pg (25-34) Mean Corpuscular Hemoglobin Concent 33.5 g/dl (32-36) Platelet Count 218 K/uL (130-400) Mean Platelet Volume 9.8 fL (7.4-10.4) Neutrophils (%) (Auto) 89.3 % Lymphocytes (%) (Auto) 6.5 % Monocytes (%) (Auto) 3.7 % Eosinophils (%) (Auto) 0.2 % Basophils (%) (Auto) 0.1 % Neutrophils # (Auto) 10.92 K/uL (1.4-6.5) Lymphocytes # (Auto) 0.79 K/uL (1.2-3.4) Monocytes # (Auto) 0.45 K/uL (0.11-0.59) Eosinophils # (Auto) 0.03 K/uL (0-0.5) Basophils # (Auto) 0.01 K/uL (0-0.2) Immature Granulocyte # (Auto) 0.02 K/uL (0.00-0.02) Total Bilirubin 0.7 mg/dl (0.2-1) Direct Bilirubin 0.1 mg/dl (0-0.2) Aspartate Amino Transf (AST/SGOT) 23 U/L (15-37) Alanine Aminotransferase (ALT/SGPT) 27 U/L (12-78) Alkaline Phosphatase 88 U/L (45-117) Total Protein 8.0 gm/dl (6.4-8.2) Albumin 4.3 gm/dl (3.4-5.0) Lipase 148 U/L (73-393) Urine Color YELLOW Urine Appearance TURBID (CLEAR) Urine pH >= 9.0 (4.5-7.5) Urine Specific [place] 1.013 (1.000-1.030) Urine Protein NEG (NEG) Urine Glucose (UA) NEG (NEG) Urine Ketones TRACE (NEG) Urine Occult Blood NEG (NEG) Urine Nitrite NEG (NEG) Urine Bilirubin NEG (NEG) Urine Urobilinogen NEG (NEG) Urine Leukocyte Esterase NEG (NEG) Urine WBC (Auto) 1-5 /hpf (0-5) Urine RBC (Auto) 0-4 /hpf (0-4) Urine Hyaline Casts (Auto) 1-5 /lpf (0-5) Urine Epithelial Cells (Auto) 20-30 /lpf (0-5) Urine Bacteria (Auto) NEG (NEG) Activated Partial Thromboplast Time 25.0 SECONDS (21.0-31.0) Partial Thromboplastin Ratio 1.0 Prothrombin Time 10.5 SECONDS (9.0-12.0) Prothromb Time International Ratio 1.0 (0.9-1.1) Test 02/19/17 06:42 Red Blood Count 4.34 M/uL (4.2-5.4) Mean Corpuscular Volume 87.8 fL (80-100) Mean Corpuscular Hemoglobin 30.0 pg (25-34) Mean Corpuscular Hemoglobin Concent 34.1 g/dl (32-36) RDW Standard Deviation 42.0 fL (36.4-46.3) RDW Coefficient of Variation 13.0 % (11.5-14.5) Mean Platelet Volume 9.0 fL (7.4-10.4) Anion Gap 7.0 mmol/L (3-11) Est Creatinine Clear Calc Drug Dose 101.8 ml/min Estimated GFR () 115.6 Estimated GFR (Non- 99.8 BUN/Creatinine Ratio 8.8 (10-20) Calcium Level 8.4 mg/dl (8.5-10.1) Magnesium Level 2.0 mg/dl (1.8-2.4) Date/Time Source Procedure Growth Status 02/16/17 07:30 Urine,Catheterized Urine Culture - Final NO GROWTH - LESS THAN 1,000 COLONIES/ML Complete Last 24 Hours Test 02/19/17 06:42 White Blood Count 6.77 K/uL Red Blood Count 4.34 M/uL Hemoglobin 13.0 g/dL Hematocrit 38.1 % Mean Corpuscular Volume 87.8 fL Mean Corpuscular Hemoglobin 30.0 pg Mean Corpuscular Hemoglobin Concent 34.1 g/dl RDW Standard Deviation 42.0 fL RDW Coefficient of Variation 13.0 % Platelet Count 212 K/uL Mean Platelet Volume 9.0 fL Sodium Level 141 mmol/L Potassium Level 3.5 mmol/L Chloride Level 107 mmol/L Carbon Dioxide Level 27 mmol/L Anion Gap 7.0 mmol/L Blood Urea Nitrogen 5 mg/dl Creatinine 0.60 mg/dl Est Creatinine Clear Calc Drug Dose 101.8 ml/min Estimated GFR () 115.6 Estimated GFR (Non- 99.8 BUN/Creatinine Ratio 8.8 Random Glucose 108 mg/dl Calcium Level 8.4 mg/dl Magnesium Level 2.0 mg/dl Assessment & Plan This is a 61 year old female with a complicated surgical history including cholecystectomy with complications including a biloma, appendectomy, hysterectomy, Meckel's diverticulum presents with nausea/vomiting and abdominal pain and subsequently found to have small bowel obstruction Small Bowel Obstruction-resolved / tried some food this morning-bloating and fearful for more food will reassess after dinner this evening may need to stay 1 more day POD#3 surgical site is healing well BM x 6 last night 5/3 s/p lysis of adhesions POD #2 tolerating clears advance as tolerated encouraged ambulation d/c home when diet advanced / s/p lysis of adhesions s/p repair of inguinal hernia doing well; pain controlled NGT in abdomen is soft advance diet as per general surgery; appreciate management 02/15 appreciate general surgery input plan is for possible exploration in AM clears + IVFs, antiemetics NPO after midnight 02/14 NGT removed; patient was having a difficult time with it she has passed gas and had a bowel movement added Phenergan to see if that helps with nausea continue Zofran PRN IVFs continue sips of clears as tolerated 02/13 KUB this AM = SBO no passing gas, no BM yet continue NGT, IVFs, NPO status 02/[address] = possible small bowel obstruction NPO + IVFs (sips and chips) patient continued to have significant tenderness and vomiting episodes this AM ( 02/12) IV tylenol + IV toradol for pain Zofran PRN for nausea NGT inserted with intermittent suction - 400cc removed immediately; and continues to drain if pain persist, will consult general surgery DVT ppx Heparin q12 FULL CODE Ofe Dexter DO [facility] Hospitalist Consultants: Gen Surg Current Inpatient Medications: Current Inpatient Medications Medications (Trade) Dose Ordered Sig/Mary Route Start Time Stop Time Status Last Admin Dose Admin Ondansetron HCl (Zofran Inj) 4 mg Q6H PRN IV 02/11/17 17:30 03/13/17 17:29 02/15/17 13:46 4 MG Miscellaneous (Iv Fluids Completed) 1 ea PRN PRN N/A 02/11/17 18:00 02/11/18 17:59 Docusate Sodium 100 mg 100 mg BID PO 02/11/17 21:00 03/13/17 20:59 02/19/17 07:51 100 MG Promethazine HCl/ Sodium Chloride (Phenergan Inj/ Nss 50ml) 50.5 ml @ 204 mls/hr Q6H PRN IV 02/14/17 18:30 03/16/17 18:29 02/15/17 21:08 204 MLS/HR Morphine Sulfate (MoRPHine SULFATE INJ) 4 mg Q1H PRN IV 02/16/17 08:15 03/02/17 08:14 Oxycodone/ Acetaminophen (Percocet 5-325mg Tab) 1 tab Q4H PRN PO 02/17/17 07:00 03/03/17 06:59 Acetaminophen (Tylenol Tab) 650 mg Q6H PRN PO 02/18/17 08:30 03/20/17 08:29 02/18/17 21:15 650 MG Heparin Sodium (Porcine) (Heparin Sq 5000 Unit/0.5ml) 5,000 unit Q12 SQ 02/19/17 09:00 03/21/17 08:59
[2017-02-19 15:10] VITALS: BP 139/84; PULSE 85; TEMP 37.2; O2SAT 97
[2017-02-20 00:01] VITALS: BP 112/74; PULSE 83; TEMP 37; O2SAT 95
[2017-02-20 07:13] LABS: HEMATOCRIT 41.3 % (37-47); MEAN CELL VOLUME 88.4 fL (80-100); MEAN CORPUSCULAR HEMOGLOBIN 29.6 pg (25-34); MEAN CORPUSCULAR HGB CONC 33.4 g/dl (32-36); MEAN PLATELET VOLUME 9.2 fL (7.4-10.4); PLATELET COUNT 275 K/uL (130-400); RED BLOOD COUNT 4.67 M/uL (4.2-5.4); WHITE BLOOD COUNT 7.02 K/uL (4.8-10.8)
[2017-02-20 07:19] VITALS: BP 112/74; PULSE 87; TEMP 37; O2SAT 98
[2017-02-20 07:42] LABS: BUN/CREATININE RATIO 8.3 (10-20); CALCIUM 9.1 mg/dl (8.5-10.1); CREATININE 0.66 mg/dl (0.60-1.20); POTASSIUM 3.5 mmol/L (3.5-5.1)
[2017-02-20] MEDS ORDERED: OXYC-57 PO (07:50)
--- NOTE | 2017-02-20 07:53 | Discharge Instructions ---
Discharge Instructions Date of Service February 20, 2017. Admission Reason for Admission: Lower Abdominal Pain Discharge Discharge Diagnosis / Problem: small bowel obstruction Discharge Goals Goal(s): Decrease discomfort Activity Recommendations Activity Limitations: as noted below Lifting Limitations: no more than 10 pounds Shower/Bathe: no limitations . Instructions / Follow-Up Instructions / Follow-Up Dr. Stephens's office next week for staple removal call [phone] to schedule [address] , or the yudy can be removed by your family doctor mid next week Current Hospital Diet Patient's current hospital diet: Regular Diet Discharge Diet Recommended Diet: Regular Diet Procedures Procedures Performed: Exploratory Laparotomy, lysis of adhesions, and Incarcerated Umbilical Hernia Repair Pending Studies Studies pending at discharge: no Medical Emergencies . Who to Call and When: Medical Emergencies: If at any time you feel your situation is an emergency, please call 911 immediately. . Non-Emergent Contact Non-Emergency issues call your: Surgeon Call Non-Emergent contact if: you have a fever, temperature is above 101.5, your pain is not controlled, wound has increased redness . "Provider Documentation" section prepared by Devin Apple. . VTE Core Measure Inpt VTE Proph given/why not?: Enoxaparin (Lovenox)SQ, Unfractionated heparin SQ, SCD's
--- NOTE | 2017-02-20 08:05 | SURGERY PROGRESS NOTE ---
DATE: 02/20/2017 Krystina is 4th postoperative day status post exploratory lap, lysis of adhesive band. She feels good. She wants to go home. She does have frequent bowel movements, but she said last night she felt different, and she is passing a lot of gas and overall she is having no other issues. She has virtually no abdominal pain. Her last vitals showed a temperature of 37, pulse 83, respirations 18, blood pressure 112/74, O2 sats 95 on room air. Laboratory this morning is pending. The abdomen is completely benign. The incision has some little ecchymosis around the operative site. Extremities grossly normal. This morning we will get a stool for C. diff, from my point of view, the patient can be discharged. She lives in [facility]. She is not sure if she is going to go home this weekend or not. If she stays around till the beginning of the week, we will certainly see her on Thursday, if not, she can follow up with a local physician there to take out the yudy in approximately 7-10 days. She should not drive until the beginning of the week and should not lift anything heavier than 10 pounds. She may shower. She really does not need anything for pain.
[2017-02-20] MEDS: DOCUSATE SODIUM 100 MG CAP PO SCH (08:33)
[2017-02-20] MEDS: HEPARIN SOD 5000 UNIT/0.5 ML CARP SQ SCH (08:34)
[2017-02-20] MEDS ORDERED: CLC100 PO (11:50)
[2017-02-20 12:42] VITALS: BP 112/74; PULSE 87; TEMP 37; O2SAT 98
--- NOTE | 2017-02-27 08:36 | Discharge Summary ---
Discharge Summary Date of Service February 20, 2017. Discharge Summary Admission Date: Feb 12, 2017 at 12:43 Discharge Date: February 20, 2017 Discharge Disposition: Home Principal Diagnosis: SBO Procedures: NGT placement x 2 exploratory laparotomy with lysing of adhesions Vaccinations: None. Consultations: Gen Surg Pending Studies/Follow-Up: see instructions below Medication Reconciliation New Medications: Oxycodone/Acetaminophen 5MG/325MG (Percocet 5MG/325MG) Tab 1-2 TABLETS PO Q4H PRN for Pain, #30 TAB Docusate Sodium (Docusate Sodium) 100 Mg Cap 100 MG PO BID PRN for Constipation for 20 Days, #40 CAP Continued Medications: Cholecalciferol (Vitamin D3) 1,000 Unit Tab 1 TAB PO DAILY, TAB Fish Oil ([place]-3) 1 Ea Cap 1 CAP PO DAILY, CAP Multivitamin (Multivitamin) Tab 1 TAB PO DAILY, TAB Discontinued Medications: Ibuprofen (Advil) 200 Mg Tab 200-600 MG PO Q4H, TAB Admission Information HPI (per Admitting provider): Patient seen and examined. 61 year old female with no chronic medical history presents to the ED complaining of abdominal pain prior to arrival. Patient reports she acutely developed lower abdominal pain this AM that she described as sharp and comes in waves. She rates the pain as a 9/10 at it's worst. She reports 4 episodes of vomiting and states she had a small bowel movement. She denies fevers, chills, URI symptoms, chest pain, SOB, nausea, dysuria, calf pain and edema. She reports that she has been told she has a meckle's diverticulum. She has a history of cholecystectomy, appendectomy and hysterectomy. In the ED VS are stable, WBC count is 12K otherwise lab work is unremarkable. CT a/p could not r/o bowel obstruction. Patient received IVFs, antiemetics and pain medications. She is resting comfortably. She will be observed for further workup and treatment. Physical Exam (per Admitting): General Appearance: + pertinent finding (Pleasant WD/WN 61 year old female lying in bed in NAD with family at bedside ) Head: normocephalic, atraumatic Eyes: PERRL, EOMI, sclerae normal ENT: hearing grossly normal, pharynx normal Neck: supple, no JVD Respiratory/Chest: chest non-tender, lungs clear, normal breath sounds, no respiratory distress, no accessory muscle use Cardiovascular: regular rate, rhythm, no edema, no gallop, no JVD, no murmur , normal peripheral pulses Abdomen/GI: normal bowel sounds, soft, no organomegaly, + tenderness (mild lower abdomen ) Back: normal inspection, no muscle spasm Extremities/Musculoskelatal: no calf tenderness, normal capillary refill, no pedal edema Neurologic/Psych: no motor/sensory deficits, alert, oriented x 3 Skin: normal color, warm/dry, no rash Lymphatic: no adenopathy Hospital Course This is a 61 year old female with a complicated surgical history including cholecystectomy with complications including a biloma, appendectomy, hysterectomy, Meckel's diverticulum presents with nausea/vomiting and abdominal pain and subsequently found to have small bowel obstruction Small Bowel Obstruction-resolved 5/ tried some food this morning-bloating and fearful for more food will reassess after dinner this evening may need to stay 1 more day POD#3 surgical site is healing well BM x 6 last night 5/3 s/p lysis of adhesions POD #2 tolerating clears advance as tolerated encouraged ambulation d/c home when diet advanced / s/p lysis of adhesions s/p repair of inguinal hernia doing well; pain controlled NGT in abdomen is soft advance diet as per general surgery; appreciate management 02/15 appreciate general surgery input plan is for possible exploration in AM clears + IVFs, antiemetics NPO after midnight 02/14 NGT removed; patient was having a difficult time with it she has passed gas and had a bowel movement added Phenergan to see if that helps with nausea continue Zofran PRN IVFs continue sips of clears as tolerated 02/13 KUB this AM = SBO no passing gas, no BM yet continue NGT, IVFs, NPO status 02/[address] = possible small bowel obstruction NPO + IVFs (sips and chips) patient continued to have significant tenderness and vomiting episodes this AM ( 02/12) IV tylenol + IV toradol for pain Zofran PRN for nausea NGT inserted with intermittent suction - 400cc removed immediately; and continues to drain if pain persist, will consult general surgery On day of discharge she was afebrile and hemodynamically stable. She was ambulatory and was tolerating PO without difficulty. Physical exam was normal. She was sent home in stable condition with close PCP follow-up. Total time spent on discharge = 60 minutes This includes examination of the patient, discharge planning, medication reconciliation, and communication with other providers. Discharge Instructions Discharge Instructions Date of Service February 20, 2017. Admission Reason for Admission: Lower Abdominal Pain Discharge Discharge Diagnosis / Problem: small bowel obstruction Discharge Goals Goal(s): Decrease discomfort Activity Recommendations Activity Limitations: as noted below Lifting Limitations: no more than 10 pounds Shower/Bathe: no limitations . Instructions / Follow-Up Instructions / Follow-Up Dr. Stephens's office next week for staple removal call [phone] to schedule [facility] [address], or the yudy can be removed by your family doctor mid next week Current Hospital Diet Patient's current hospital diet: Regular Diet Discharge Diet Recommended Diet: Regular Diet Procedures Procedures Performed: Exploratory Laparotomy, lysis of adhesions, and Incarcerated Umbilical Hernia Repair Pending Studies Studies pending at discharge: no Medical Emergencies . Who to Call and When: Medical Emergencies: If at any time you feel your situation is an emergency, please call 911 immediately. . Non-Emergent Contact Non-Emergency issues call your: Surgeon Call Non-Emergent contact if: you have a fever, temperature is above 101.5, your pain is not controlled, wound has increased redness . "Provider Documentation" section prepared by Devin Apple. . VTE Core Measure Inpt VTE Proph given/why not?: Enoxaparin (Lovenox)SQ, Unfractionated heparin SQ, SCD's Addendum: Ofe Dexter, DO on 02/20/17 @ 11:48 Discharge Inst - Addendum Addendum Notes: ADDITIONAL PROVIDER INSTRUCTIONS: Continue all medications as discussed. Percocet is fine to use for pain as needed, however, monitor total Tylenol ( acetaminophen) intake and do not exceed 3000mg in one day. Avoid Ibuprofen for another week, or until bruising has resolved. A follow-up appointment with your primary care physician is recommended sometime in the next 2 weeks to ensure they are aware of events during this hospitalization and can ensure you are feeling well. It was a pleasure taking care of you! Call if you have any questions or problems. You can reach a [facility] hospitalist on duty at [facility] 24 hours a day by calling [phone]. Take care of yourself. Ofe Dexter DO [facility]. Addendum Provider: Addendum Notes were documented by provider Ofe Dexter. Additional Copies To Dr. Robert Hebert
== END 2017-02-20 14:01 | disposition home or self-care (01) | DRG 336 ==
LOC: ENRESERVDT → ENRESERVTM → C.EDB 12:29 → C.MSN 17:19 → OBSVTOIN 02-12 12:43
PROVIDERS: ADMIT Internal Medicine; ATTEND Hospitalist
PROC: 0WQF0ZZ Repair Abdominal Wall, Open Approach (ICD-10-PCS; principal; 2017-02-16 07:30)
PROC: 0DN80ZZ Release Small Intestine, Open Approach (ICD-10-PCS; principal; 2017-02-16 07:30)
DX: K42.0 Umbilical hernia with obstruction, without gangrene (principal); K50.90 Crohn's disease, unspecified, without complications; Z90.49 Acquired absence of other specified parts of digestive tract; D72.829 Elevated white blood cell count, unspecified; Q43.0 Meckel's diverticulum (displaced) (hypertrophic)